=== PATIENT | female | born 1960 | race Caucasian/White ===

== ENCOUNTER 2022-02-09 12:57 | Outpatient (CLI) | payer OTHER, SELFPAY ==
--- OUTSIDE RECORDS SUMMARY | 2022-02-09 09:07 | XMS_ITS | Encounter Summary ---
:1960 Author Organization [facility] Address [address] [place] [address] Care Team Providers Name Role Phone Ran Siddiqui M.D. Primary Care Provider Unavailable Encounter Details Date Type Department Care Team Description 09/05/2018 Hospital Encounter Department of Ran Siddiqui Hypert ension Essential Primary; Laboratory Medicine Joel Villalobos Hypergly cemia; in [place], [facility] [place] [address] [place] [address] Social History Tobacco Use Types Packs/Day Years Used Date Smoking Tobacco: Former Smokeless Tobacco: Never Alcohol Use Standard Drinks/Week Comments Yes 0 (1 standard drink = 0.6 oz pure alcoho l) occasional Alcohol Habits Answer Date Recorded How often do you have a drink containing alcohol? Patient re fused 01/02/2019 How many drinks containing alcohol do you have on a Patient refused 01/02/2019 typical day when you are drinking? How often do you have six or more drinks on one Never 01/02/2019 occasion? Comment: occasional 04/20/2018 Social Isolation Answer Date Recorded In a typical week, how many times do you talk on Twice a wee k 01/02/2019 the phone with family, friends, or neighbors? How often do you get together with friends or Once a week 01/02/2019 relatives? How often do you attend zoroastrian or holiness 1 to 4 times per year 01/02/2019 services? Do you belong to any clubs or organizations such Yes 01/02/2019 as zoroastrian groups, unions, fraternal or athletic groups, or school groups? How often do you attend meetings of the clubs or 1 to 4 time s per year 01/02/2019 organizations you belong to? Are you now , , , Not asked , never or living with a partner? Physical Activity Answer Date Recorded On average, how many days per week do you engage in moderate to 5 days 01/02/2019 strenuous exercise (like walking fast, running, jogging, dancing, swimming, biking, or other activities that cause a light or heavy sweat)? On average, how many minutes do you engage in exercise at th is 20 min 01/02/2019 level? Stress Answer Date Recorded Do you feel stress - tense, restless, nervous, or Only a lit tle 01/02/2019 anxious, or unable to sleep at night because your mind is troubled all the time - these days? Financial Resource Strain Answer Date Recorded How hard is it for you to pay for the very basics like Not v kailash hard 01/02/2019 food, housing, medical care, and heating? Food Insecurity Answer Date Recorded Within the past 12 months, you worried that your food Never true 01/02/2019 would run out before you got money to buy more. Within the past 12 months, the food you bought just Patient refused 01/02/2019 didn't last and you didn't have money to get more. Transportation Needs Answer Date Recorded In the past 12 months, has lack of transportation kept you N o 01/02/2019 from medical appointments or from getting medications? In the past 12 months, has lack of transportation kept you N ot asked from meetings, work, or getting things needed for daily living? Sex Assigned at Date Recorded Female 11/03/2017 1:17 PM CDT documented as of this encounter Medications at Time of Discharge Medication Sig Dispensed Refills Start Date End Date ascorbic acid, vitamin C, Take 500 mg by 0 (for_VITAMIN C) 500 mg mouth daily. tablet biotin 1 mg capsule Take by mouth 0 08/28/2011 daily. CINNAMON BARK (CINNAMON Take 1,000 mg by 0 2011 ORAL) mouth daily with breakfast. cranberry 400 mg capsule Take 400 mg by 0 013 mouth daily. fexofenadine Take 1 tablet by 0 08/07/2013 (for_ALLEGRA) 180 mg mouth daily. tablet multivitamin capsule Take by mouth 0 01/22/2010 daily. albuterol (PROAIR HFA) 90 Inhale 2 puffs 8.5 g 0 201810/16/2019 mcg/actuation inhaler every 4 (four) hours as needed for wheezing or shortness of breath. aspirin 81 mg capsule Take 1 tablet by 0 01/23/20 10 10/16/2019 mouth daily. cefprozil (CEFZIL) 500 mg Take 1 tablet (500 20 tablet 0 10/11/2018 tablet mg total) by mouth every 12 (twelve) hours. cholecalciferol Take 2,000 Int'l 0 08/2018 (for_VITAMIN D3) 400 Units by mouth unit/mL drops daily. DOCOSAHEXANOIC ACID/EPA Take 1,000 mg by 0 10/11/2018 (FISH OIL ORAL) mouth daily. levothyroxine (LEVOXYL) Take 1 tablet (137 90 tablet 4 08/0910/11/2018 137 mcg tablet mcg total) by mouth daily. lisinopril Take 1 tablet (10 90 tablet 4 09/02/2017 019 (PRINIVIL,ZESTRIL) 10 mg mg total) by mouth tablet daily. metoprolol succinate Take 1 tablet (100 90 tablet 4 018 10/11/2018 (TOPROL-XL) 100 mg 24 hr mg total) by mouth tablet daily. omeprazole (PriLOSEC) 20 Take 1 capsule (20 90 capsule 4 10/11/2018 mg capsule mg total) by mouth daily. potassium chloride Take 3 tablets (60 270 tablet 3 8 09/28/2018 (KLOR-CON M/KDUR) 20 mEq mEq total) by mouth ER tablet daily. triamterene-hydroCHLOROth Take 0.5 tablets by 45 tablet 2 0 09/20/2017 10/11/2018 iazide (MAXZIDE) 75-50 mg mouth daily. per tablet documented as of this encounter Progress Notes Ran Siddiqui M.D. - 09/05/2018 1:31 PM CDT Your lab results are essentially normal. We can discuss at your upcoming appointment in October Ran Siddiqui MD documented in this encounter Plan of Treatment Not on filedocumented as of this encounter Procedures Procedure Name Priority Date/Time Associated Diagnosis Comme nts THYROID-STIMULATING Routine 09/05/2018 9:49 AM Hypothyroidism Results for this HORMONE-SENSITIVE CDT Acquired procedure are in (S-TSH) the results section. HEMOGLOBIN A1C, B Routine 09/05/2018 9:49 AM Hyperglycemia Res ults for this CDT procedure are i n the results section. BASIC METABOLIC Routine 09/05/2018 9:49 AM Hypertension Essent ial Results for this PANEL, S/P CDT Primary procedure are in Hyperglycemia the results section. documented in this encounter Results S-TSH (Thyroid-Stimulating Hormone - Sensitive) (09/05/2018 9:49 AM CDT) athologist Signature TSH, Sensitive 0.9 0.3 - 4.2 09/05/2018 [facility] mIU/L 12:19 PM CDT [facility] Comment: Biotin has been identified by the jaime murillo as a potential interfering substance. ??Higher concentr ations of biotin may be found in multivitamins, hair/nail supple ments, and workout supplements. ??If the result does not ma h clinical observations, repeat testing after patient refrains fr om the use of supplements for at least 12 hours. Specimen Anatomical Collection Method Collection Time Receive d Time (Source) Location / / Volume Laterality Blood (Blood, 09/05/2018 9:49 AM 09/06/19 19 9:50 Venous) CDT AM CDT Ran Siddiqui M.D. LAB BLOOD ADD-ON Performing Organization Address City/State/ZIP Code Phon e Number [facility] [address] [place] [address] LAB Hemoglobin A1c (09/05/2018 9:49 AM CDT) athologist Signature Hemoglobin A1c, 5.4 4.2 - 5.6 09/05/2018 [facility] B % 10:07 AM CDT [facility] Specimen Anatomical Collection Method Collection Time Receive d Time (Source) Location / / Volume Laterality Blood (Blood, 09/05/2018 9:49 AM 09/06/19 19 9:50 Venous) CDT AM CDT Ran Siddiqui M.D. LAB BLOOD ADD-ON Performing Organization Address City/State/ZIP Code Phon e Number [facility] [phone] [place] [address] LAB (ABNORMAL) Basic Metabolic Panel (09/05/2018 9:49 AM CDT) P athologist Signature Potassium, S 4.1 3.6 - 5.2 09/05/2018 [facility] mmol/L 12:[address] [facility] Sodium, S 146 (H) 135 - 145 09/05/2018 [facility] mmol/L 12:19 PM [facility] Chloride, S 106 98 - 107 09/05/2018 [facility] mmol/L 12:[address] [facility] Bicarbonate, S 24 - 09/05/2018 [facility] mmol/L 12:19 PM [facility] Anion Gap 16 (H) 7 - 15 09/05/2018 [facility] 12:19 PM [facility] BUN (Blood Urea 18 6 - 21 09/05/2018 [facility] Nitrogen), S mg/dL 12:19 PM [facility] Creatinine 1.03 0.59 - 09/05/2018 [facility] 1.04 mg/dL 12:19 PM [facility] eGFR-Non 60 >=60 09/05/2018 [facility] Black/ mL/min/BSA 12:19 PM [facility] Comment: ----ADDITIONAL INFORMATION---- Estimated GFR calculated using the 2009 CKD_EPI creatinine equation. eGFR-Black/ 70 >=60 mL/min/BSA 2018 12:19 PM [facility] Comment: ----ADDITIONAL INFORMATION---- Estimated GFR calculated using the 2009 CKD_EPI creatinine equation. Calcium, Total, S 10.0 8.6 - 10.0 mg/dL 09/05/2018 12:1 9 PM [facility] Glucose, S 86 70 - 140 mg/dL 09/05/2018 12:19 PM [facility] Specimen Anatomical Collection Method Collection Time Receive d Time (Source) Location / / Volume Laterality Blood (Blood, 09/05/2018 9:49 AM 09/06/19 9:50 Venous) CDT AM CDT Ran Siddiqui M.D. LAB BLOOD ADD-ON Performing Organization Address City/State/ZIP Code Phon e Number [facility] [phone] [place] [address] LAB documented in this encounter Visit Diagnoses Diagnosis Hypertension Essential Primary Hyperglycemia Hypothyroidism Acquired documented in this encounter Care Teams Clinical Lab Scientist Relationship Specialty Start Date End Date Ran Siddiqui M.D. PCP - General 10/22/1604/09 documented as of this encounter
--- OUTSIDE RECORDS SUMMARY | 2022-02-09 09:07 | XMS_ITS | Encounter Summary ---
:1960 Author Organization [facility] Address [address] [place] [address] Care Team Providers Name Role Phone Ran Siddiqui M.D. Primary Care Provider Unavailable Reason for Referral MRI/CAT/PET Scan (Routine) - Closed Specialty Diagnoses / Procedures Referred By Contact Refer red To Contact Radiology Diagnoses Other Specified Joint Disorders Unspecified Joint Almas Carver M.D. [facility] [place] [facility] Procedures MR Knee Right without IV Contrast MI MRI LWR EXT JOINT WO CNTRST HC MRI LWR EXT JOINT WO CNTRST MI MRI LWR EXT JOINT WO CNTRST [address] [place] [address] [phone] Referral ID Status Reason Start Date Expiration Date Visits Requ ested Visits Authorized [id number] Closed 09/14/2018 09/14/2019 1 1 Reason for Visit MRI/CAT/PET Scan (Routine) - Closed Specialty Diagnoses / Procedures Referred By Contact Refer red To Contact Radiology Diagnoses Other Specified Joint Disorders Unspecified Joint Almas Carver M.D. [facility] [place] [facility] Procedures MR Knee Right without IV Contrast MI MRI LWR EXT JOINT WO CNTRST HC MRI LWR EXT JOINT WO CNTRST MI MRI LWR EXT JOINT WO CNTRST [address] [place] [address] [phone] Referral ID Status Reason Start Date Expiration Date Visits Requ ested Visits Authorized [id number] Closed 09/14/2018 09/14/2019 1 1 Encounter Details Date Type Department Care Team Description 09/23/2018 Hospital Encounter Department of Agusto Carver ecified Radiology in Almas Rey M.D. Joint Disorders [place], [place] [address] Unspecified Joint [address] [place] [phone] Social History Tobacco Use Types Packs/Day [...] 01/02/2019 relatives? How often do you attend adventist or scientologist 1 to 4 times per year 01/02/2019 services? Do you belong to any clubs or organizations such Yes 01/02/2019 as adventist groups, unions, fraternal or athletic groups, or [...] to pay for the very basics like Rafal linder hard 01/02/2019 food, housing, medical care, and [...] per tablet documented as of this encounter Plan of Treatment Not on filedocumented as of this encounter Procedures Procedure Name Priority Date/Time Associated Comments Diagnosis MR KNEE RIGHT RAD - Routine 09/23/2018 12:22 Other Specified Result s for this WITHOUT IV (most inpatients PM CDT Joint Disorders procedur e are in CONTRAST and all Unspecified Joint the result s outpatients) section. documented in this encounter Results MR Knee Right without IV Contrast (09/23/2018 12:22 PM CDT) Anatomical Region Laterality Modality Lower Extremity, Knee, Musculoskeletal RST LOS, Right Magnetic Resonance Musculoskeletal ARZ LOS, Muskuloskeletal FLA LOS Specimen (Source) Anatomical Collection Method Collection Time Re ceived Time Location / / Volume Laterality 09/23/2018 12:24 PM CDT Impressions 09/23/2018 12:37 PM CDT IMPRESSION: 1. Multidirectional tear of the posterio r body and posterior horn of the medial meniscus. 2. 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 There is subchondral edema of the medial tibial plateau with irregularity of the cortical bone plate. No definite subchondral insufficiency fr acture. 3. Large amount of reactive edema about the medial collateral ligament. Knee ligaments are intact. 4. The lateral meniscus and lateral comp artment cartilage are intact. Narrative 09/23/2018 12:37 PM CDT EXAM: MR KNEE RIGHT WITHOUT IV CONTRAST COMPARISON: Radiographs 09/05/2018 FINDINGS: Unenhanced MRI of the right kn ee. MEDIAL COMPARTMENT: Multidirectional tea r of the posterior body and posterior horn of the medial meniscus. The posteri or root attachment is intact. There is peripheral extrusion of the meniscus wit hout evidence of a displaced flap. Large area of full-thickness chondral denudati on of the medial tibial plateau with irregularity of the cortical bone plate and subchondral edema. No definite subchondral insufficiency fracture is id entified. There is also high-grade chondromalacia of the opposing medial fe moral condyle. LATERAL COMPARTMENT: The lateral meniscu s and lateral compartment cartilage are intact. PATELLOFEMORAL COMPARTMENT: Grade III ch ondromalacia of the lateral patellar facet and trochlear sulcus. LIGAMENTS and TENDONS: The ACL and PCL a re intact. The lateral collateral ligament proper, biceps femoris tendon, and popliteus tendon are intact. The edema along the medial collateral ligame nt is likely reactive. BONES and SOFT TISSUES: Trace knee joint effusion. Moderate popliteal fossa cyst. Procedure Note Ector Kelly M.D. - 09/23/2018For matting of this note might be different from the original. EXAM: MR KNEE RIGHT WITHOUT IV CONTRAST COMPARISON: Radiographs 09/05/2018 FINDINGS: Unenhanced MRI of the right kn ee. MEDIAL COMPARTMENT: Multidirectional tea r of the posterior body and posterior horn of the medial meniscus. The posteri or root attachment is intact. There is peripheral extrusion of the meniscus wit hout evidence of a displaced flap. Large area of full-thickness chondral denudati on of the medial tibial plateau with irregularity of the cortical bone plate and subchondral edema. No definite subchondral insufficiency fracture is id entified. There is also high-grade chondromalacia of the opposing medial fe moral condyle. LATERAL COMPARTMENT: The lateral meniscu s and lateral compartment cartilage are intact. PATELLOFEMORAL COMPARTMENT: Grade III ch ondromalacia of the lateral patellar facet and trochlear sulcus. LIGAMENTS and TENDONS: The ACL and PCL a re intact. The lateral collateral ligament proper, biceps femoris tendon, and popliteus tendon are intact. The edema along the medial collateral ligame nt is likely reactive. BONES and SOFT TISSUES: Trace knee joint effusion. Moderate popliteal fossa cyst. IMPRESSION: 1. Multidirectional tear of the posterio r body and posterior horn of the medial meniscus. 2. 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 There is subchondral edema of the medial tibial plateau with irregularity of the cortical bone plate. No definite subchondral insufficiency fr acture. 3. Large amount of reactive edema about the medial collateral ligament. Knee ligaments are intact. 4. The lateral meniscus and lateral comp artment cartilage are intact. Almas Carver M.D. [facility] PROCEDURES documented in this encounter Visit Diagnoses Diagnosis Other Specified Joint Disorders Unspecif ied Joint documented in this encounter Care Teams Sales Associate Cashier Relationship Specialty Start Date End Date Ran Siddiqui M.D. PCP - General 10/22/1604/09 documented as of this encounter
--- OUTSIDE RECORDS SUMMARY | 2022-02-09 09:23 | XMS_ITS | Clinical Summary ---
:1960 Author Organization [facility] [employer] [facility] [place] [address] Care Team Providers Name Role Phone Ran Siddiqui MD Primary Care Provider [phone] Allergies Active Allergy Reactions Severity Noted Date Comments Penicillins Hives Low 09/08/2011 Hydrocodone-Acetaminophen Hives 05/18/2014 Medications Medication Sig Dispensed Refills Start Date End Date Status CINNAMON BARK Take 1,000 mg by 0 Active (CINNAMON mouth once daily. ORAL)Indications: Supplement supplement Indications: supplement fexofenadine Take 180 mg by mouth 0 Active (ELZA) 180 mg once daily with a tabletIndications: meal. Indications: allergic rhinitis ALLERGIC RHINITIS DOCOSAHEXANOIC Take 1,000 mg by 0 Active ACID/EPA (FISH OIL mouth once daily. ORAL)Indications: for Indications: for heart health heart health triamterene-hydrochlo Take 1 tablet by 0 Active rothiazide, 75-50 mg, mouth every morning. (MAXZIDE) 75-50 mg Indications: tabletIndications: HYPERTENSION hypertension levothyroxine Take 150 mcg by mouth 0 Active (LEVOXYL) 150 mcg before breakfast. tabletIndications: Indications: hypothyroidism HYPOTHYROIDISM lisinopril (PRINIVIL; Take 10 mg by mouth 0 Active ZESTRIL) 10 mg once daily. tabletIndications: Indications: hypertension HYPERTENSION multivitamin (MVI) Take 1 tablet by 0 Active tabletIndications: mouth once daily. vitamin deficiency Indications: VITAMIN prevention DEFICIENCY PREVENTION omeprazole (PRILOSEC) Take 20 mg by mouth 0 Active 20 mg once daily before a capsuleIndications: meal. Indications: gastroesophageal GASTROESOPHAGEAL reflux disease REFLUX CHOLECALCIFEROL, Take 400 Int'l Units 0 Active VITAMIN D3, (VITAMIN by mouth once daily. D-3 ORAL)Indications: Indications: prevention of vitamin prevention of vitamin d deficiency d deficiency BIOTIN Take 1 tablet by 0 Act inga ORALIndications: mouth once daily. supplement Indications: supplement METOPROLOL SUCCINATE Take 100 mg by mouth 0 Active ORALIndications: once daily. hypertension Indications: hypertension POTASSIUM CHLORIDE Take 20 mEq by mouth 0 Active ORALIndications: once daily. potassium supplement Indications: potassium supplement ascorbic acid Take 500 mg by mouth 0 Active (VITAMIN C) 500 mg once daily. tabletIndications: Indications: vitamin vitamin c supplement c supplement albuterol HFA (PROAIR Inhale 2 Puffs by 0 Active HFA) 90 mcg/actuation mouth every 4 hours inhaler if needed (wheezing or shortness breath). aspirin (ECOTRIN) 81 Take 81 mg by mouth 0 Active mg enteric coated once daily with a tabletIndications: meal. Indications: myocardial infarction treatment to prevent prevention a heart attack Cranberry 400 mg Take 400 mg by mouth 0 Active capsuleIndications: once daily. UTI prevention Indications: UTI prevention magnesium 250 mg tab Take 250 mg by mouth 0 Active once daily. traMADol (ULTRAM) 50 Take 1 tablet by 15 tablet 0 10/25/2018 Active mg tabletIndications: mouth every 6 hours Complex tear of if needed for Pain. medial meniscus of right knee as current injury, initial encounter CrutchIndications: For home use. 1 Device 0 10/25/2018 Active Complex tear of medial meniscus of right knee as current injury, initial encounter Active Problems Problem Noted Date Complex tear of medial meniscus of right knee as curre nt injury 10/20/2018 Premenopausal menorrhagia 01/06/2012 Immunizations Name Administration Dates Next Due Influenza, IIV3 (Age >=3 years) 02/04/2011, 03/12/2008 Td (Age >=7 Years) 07/18/2010, 04/09/2005 Zoster (Zostavax-ZVL, live) 07/28/2011 Social History Tobacco Use Types Packs/Day Years Used Date Former Smoker Quit: 01/05/19 81 Smokeless Tobacco: Never Used Alcohol Use Standard Drinks/Week Comments Yes 0 (1 standard drink = 0.6 oz pure alcoho l) 1 or 2 per month Alcohol Habits Answer Date Recorded How often do you have a drink containing alcohol? Not asked How many drinks containing alcohol do you have on a Not aske d typical day when you are drinking? How often do you have six or more drinks on one Not asked occasion? Comment: 1 or 2 per month 01/06/2012 Sex Assigned at Date Recorded Not on file Obstetrics History Last Filed Vital Signs Vital Sign Reading Time Taken Comments Blood Pressure 132/84 10/25/2018 12:20 PM CDT Pulse 62 10/25/2018 12:20 PM CDT Temperature 36.7 ??C (98 ??F) 10/25/2018 11:15 AM CDT Respiratory Rate 18 10/25/2018 12:20 PM CDT Oxygen Saturation 97% 10/25/2018 12:20 PM CDT Inhaled Oxygen Concentration - - Weight 105.3 kg (232 lb 3.2 oz) 10/25/2018 9:12 AM CDT Height 160 cm (5' 2.99) 10/25/2018 9:12 AM CDT Body Mass Index 41.14 10/25/2018 9:12 AM CDT Plan of Treatment Health Maintenance Due Date Last Done Comments COVID-19 vaccine series (#1) 1961 Tdap 1972 Depression screening for age 12+ 1973 BMI (ht and wt on same day) for age 18+ 1979 Hepatitis C screening for age 18-79 1979 Pap test for age 21-65 1982 Colonoscopy through age 75 2006 Lipids for age 45-75 2006 Mammogram for age 45-75 2006 Zoster (shingles) series for age 50+ (2 of 09/22/201107/27 3) Tetanus booster 07/18/2020 07/18/2010, 04/09/2005 Influenza for age 50-64 01/08/2022 02/04/2011, 03/12/2008 Results Not on filefrom Last 3 Months Insurance Payer Benefit Plan / Subscriber ID Effective Dates Phone Addre ss Type Group MEDICA MEDICA IFB [id number] 2017-Present [address] [place] [id number] ([address]) [place] [id number] Advance Directives Latest Code Status on File Code Status Date Activated Date Inactivated Comments Full Code 10/25/2018 8:58 AM 10/25/2018 3:12 PM Code Status Discussion: Not Discussed Full Code 01/06/2012 6:58 AM 01/07/2012 2:47 PM Full Code 09/18/2011 7:05 AM 09/18/2011 8:35 PM Care Teams Secretary Of State Relationship Specialty Start Date End Date Ran Siddiqui MD PCP - General Family Practice 09/11/11
[2022-02-09 14:02] LABS: TSH With Reflex to FT4* 0.435 uIU/mL (0.270-4.200)
[2022-02-09 14:15] LABS: Glucose* 115 mg/dL (60-115)
== END 2022-02-09 12:58 | disposition home or self-care (01) ==
PROVIDERS: PCP Nurse Practitioner Family; Visit Provider Nurse Practitioner Family
DX: E03.9 Hypothyroidism, unspecified (principal); R73.9 Hyperglycemia, unspecified
CPT/HCPCS: 36415; 82947; 84443

== ENCOUNTER 2022-04-24 10:00 | Outpatient (CLI) | payer OTHER, SELFPAY ==
[2022-04-24 16:42] LABS: Uric Acid* 7.5 mg/dL (2.2-8.4)
== END 2022-04-24 10:01 | disposition home or self-care (01) ==
LOC: KYNREF 10:00
PROVIDERS: PCP Nurse Practitioner Family; Visit Provider Nurse Practitioner Family
DX: M79.672 Pain in left foot (principal); M19.072 Primary osteoarthritis, left ankle and foot; M77.32 Calcaneal spur, left foot
CPT/HCPCS: 84550

== ENCOUNTER 2022-11-02 11:06 | Outpatient (CLI) | payer OTHER, SELFPAY | END 2022-11-02 11:07 | disposition home or self-care (01) | PROVIDERS: PCP Nurse Practitioner Family; Visit Provider Nurse Practitioner Family | DX: Z00.00 Encounter for general adult medical examination without abnormal findings (principal); E03.9 Hypothyroidism, unspecified; I10 Essential (primary) hypertension; E05.00 Thyrotoxicosis with diffuse goiter without thyrotoxic crisis or storm; Z13.0 Encounter for screening for diseases of the blood and blood-forming organs and certain disorders involving the immune mechanism; Z13.6 Encounter for screening for cardiovascular disorders; Z87.898 Personal history of other specified conditions | CPT/HCPCS: 80053; 80061; 84443; 85025 ==

== ENCOUNTER 2022-12-10 15:52 | Outpatient (CLI) | payer OTHER, SELFPAY ==
[2022-12-10 22:47] LABS: Strep A DNA Probe* NOT DETECTED (Not Detectd)
== END 2022-12-10 15:53 | disposition home or self-care (01) ==
LOC: KYNREF 15:52
PROVIDERS: PCP Nurse Practitioner Family; Visit Provider Nurse Practitioner Family
DX: J02.9 Acute pharyngitis, unspecified (principal)
CPT/HCPCS: 87651

== ENCOUNTER 2023-07-19 14:15 | Outpatient (CLI) | payer OTHER, SELFPAY ==
[2023-07-19 23:20] LABS: SARS PCR* Negative SARS-CoV-2 (Negative); Strep A DNA Probe* NOT DETECTED (Not Detectd)
== END 2023-07-19 14:16 | disposition home or self-care (01) ==
PROVIDERS: PCP Nurse Practitioner Family; Visit Provider Nurse Practitioner Family
DX: J02.9 Acute pharyngitis, unspecified (principal); J06.9 Acute upper respiratory infection, unspecified
CPT/HCPCS: 87635; 87651

== ENCOUNTER 2023-11-09 08:12 | Outpatient (CLI) | payer OTHER, SELFPAY ==
--- OUTSIDE RECORDS SUMMARY | 2023-11-09 08:18 | XMS_ITS ---
Author Organization [facility] Address [address] [place] [address] Care Team Providers Care Apple Thinner Name Role Phone Unavailable Unavailable Unavailable Surgery Details Not on file Complications Check Surgery Details section. Procedure Estimated Blood Loss Check Surgery Details section. Procedure Findings Check Surgery Details section. Procedure Specimens Taken Check Surgery Details section.
--- OUTSIDE RECORDS SUMMARY | 2023-11-09 08:18 | XMS_ITS | Encounter Summary ---
Author Organization [facility] Address [address] [place] [address] Care Team Providers Care Physiotherapy Aide Name Role Phone Valerie Mendoza M.D. Primary Care Provider Encounter Details Date Type Department Care Team (Late st Contact Info) Description 09/28/2023 Clinical Communication Department of Family Medicine, [facility], in [place], [place] [address] [address] Valerie Mendoza M.D. [address] [address] Social History Tobacco Use Types Packs/Day Years Used Date Smoking Tobacco: Former Cigarettes Q uit: 1979 Smokeless Tobacco: Never Alcohol Use Standard Drinks/Week Comments Yes 0 (1 standard drink = 0.6 oz pur e alcohol) occasional Social Connection and Isolation Panel [NHANES] A nswer Date Recorded Frequency of Communication w ith Friends and Family Twice a week 01/02/2019 Frequency of Social Gatherin gs with Friends and Family Once a week 01/02/2019 Attends Latter-Day Services 1 to 4 times per year 01/02/2019 Active Member of Clubs or Organizations Yes 01/02/2019 Attends Club or Organization Meetings 1 to 4 christopher es per year 01/02/2019 Marital Status Not on file 01/02/2019 AUDIT-C Answer Date Recorded Frequency of Alcohol Consumption Patient decline d 01/02/2019 Average Number of Drinks Patient declined 2018 Frequency of Binge Drinking Never 12/09 Overall Financial Resource Strain (CARDIA) Answe r Date Recorded Difficulty of Paying Living Expenses Not very [address] 01/02/2019 PHQ-2 Answer Date Recorded PHQ-2 Score 0 10/23/2020 [facility] [place] of Occupat ional Health - Occupational Stress Questionnaire Answer Date Recorded Feeling of Stress Only a little 01/02/2019 Exercise Vital Sign Answer Date Recorde d Days of Exercise per Week 5 days 2018 Minutes of Exercise per Session 20 min 01/02/2019 Hunger Vital Sign Answer Date Recorded Worried About Running Out of Food in the Last Ye ar Never true 01/02/2019 Ran Out of Food in the Last Year Patient decline d 01/02/2019 PRAPARE - Transportation Answer Date Re corded Lack of Transportation (Medical) No 01/02/2019 Lack of Transportation (Non-Medical) Not on file 01/02/2019 Nutrition Answer Date Recorded Nutrition: EVOO Fat Source 12 01/22 Nutrition: Servings of Fruits/Vegetables per Day 4-5 01/23/2020 Dental Answer Date Recorded Dental: Regular Dentist Unknown 07/01/19 21 Education Answer Date Recorded What is the highest level of school you have completed or the highest degree you have received? 12th grade 01/02/2019 Sex and Gender Information Value Date Recorded Sex Assigned at Female 11/03/2017 1:17 PM CDT Gender Identity Female 11/03/2017 1:17 PM CDT Sexual Orientation Not on file documented as of this encounter Plan of Treatment Upcoming Encounters Date Type Department Care Team (Late st Contact Info) Description 12/13/2023 11:45 AM CDT Appointment Department of Radiology in [place], [place] [address], [place] [address] Valerie Mendoza M.D. [address] [place] [phone] 12/28/2023 11:00 AM CDT Diagnostic Department of Otorhinolaryngology in [place], [place] [address], [place] [address] Gloria Vargas AUD, Au.D. [address], [place] [address] documented as of this encounter Visit Diagnoses Not on filedocumented in this encounter Care Teams Physiotherapy Aide Relationship Specialty Start Date End Date Valerie Mendoza M.D. [address] [place] [phone] PCP - General 01/01/23 documented as of this encounter
--- OUTSIDE RECORDS SUMMARY | 2023-11-09 08:18 | XMS_ITS | Encounter Summary ---
Author Organization [facility] Address [address] [place] [address] Care Team Providers Care Laundry Sorter Name Role Phone Valerie Mendoza M.D. Primary Care Provider [phone] Encounter Details Date Type Department Care Team (Late st Contact Info) Description 10/11/2023 Clinical Communication Department of Family Medicine, [facility], in [place], [place] [address], [place] [address] Valerie Mendoza M.D. [address], [place] [address] Social History Tobacco Use Types [...] and Family Once a week 01/02/2019 Attends Holiness Services 1 to 4 times per year [...] Answer Date Recorded PHQ-2 Score 0 10/23/2020 [facility] [place] of Occupat ional Health - Occupational Stress [...] AM CDT Appointment Department of Radiology in [place], [place] [address], [place] [address] Valerie Mendoza M.D. [address] [place] [phone] 12/28/2023 11:00 AM CDT Diagnostic Department of Otorhinolaryngology in [place], [place] [address], [place] [address] Gloria Vargas AUD, Au.D. [address], [place] [address] Scheduled Orders Name Type Priority Associated Diagnoses Orde r Schedule Audiology evaluation Audiology Routine Loss Hearing Bilateral Expected: 10/11/2023, Expires: 01/10/2025 documented as of this encounter Visit Diagnoses Diagnosis Loss Hearing Bilateral- Primary documented in this encounter Care Teams Laundry Sorter Relationship Specialty Start Date End Date Valerie Mendoza M.D. [address] [place] [phone] PCP - General 01/01/23 documented as of this encounter
--- OUTSIDE RECORDS SUMMARY | 2023-11-09 08:18 | XMS_ITS | Clinical Summary ---
Author Organization [facility] Address [place], [place] [address] Care Team Providers Care Clinical Nursing Director Name Role Phone Ran Siddiqui MD Primary Care Provider [phone] Allergies Active Allergy Reactions Criticality Noted Date Comments Penicillins Hives Low 09/08/2011 Hydrocodone-Acetaminophen Hives 05/18/2014 Medications Medication Sig Dispensed Refills Start Date End Date Status CINNAMON BARK (CINNAMON ORAL)Indications :supplement Take 1,000 mg by mouth once daily. Supplement Indications: supplement Active fexofenadine (ELZA) 180 mg tabletIndication s:allergic rhinitis Take 180 mg by mouth once daily with a meal. Indications: ALLERGIC RHINITIS Active DOCOSAHEXANOIC ACID/EPA (FISH OIL ORAL)Indications :for heart health Take 1,000 mg by mouth once daily. Indications: for heart health Active triamterene-hydr ochlorothiazide, 75-50 mg, (MAXZIDE) 75-50 mg tabletIndication s:hypertension Take 1 tablet by mouth every morning. Indications: HYPERTENSION Active levothyroxine (LEVOXYL) 150 mcg tabletIndication s:hypothyroidism Take 150 mcg by mouth before breakfast. Indications: HYPOTHYROIDISM Active lisinopril (PRINIVIL; ZESTRIL) 10 mg tabletIndication s:hypertension Take 10 mg by mouth once daily. Indications: HYPERTENSION Active multivitamin (MVI) tabletIndication s:vitamin deficiency prevention Take 1 tablet by mouth once daily. Indications: VITAMIN DEFICIENCY PREVENTION Active omeprazole (PRILOSEC) 20 mg capsuleIndicatio ns:gastroesophag eal reflux disease Take 20 mg by mouth once daily before a meal. Indications: GASTROESOPHAGEAL REFLUX Active CHOLECALCIFEROL, VITAMIN D3, (VITAMIN D-3 ORAL)Indications :prevention of vitamin d deficiency Take 400 Int'l Units by mouth once daily. Indications: prevention of vitamin d deficiency Active BIOTIN ORALIndications: supplement Take 1 tablet by mouth once daily. Indications: supplement Active METOPROLOL SUCCINATE ORALIndications: hypertension Take 100 mg by mouth once daily. Indications: hypertension Active POTASSIUM CHLORIDE ORALIndications: potassium supplement Take 20 mEq by mouth once daily. Indications: potassium supplement Active ascorbic acid (VITAMIN C) 500 mg tabletIndication s:vitamin c supplement Take 500 mg by mouth once daily. Indications: vitamin c supplement Active albuterol HFA (PROAIR HFA) 90 mcg/actuation inhaler Inhale 2 Puffs by mouth every 4 hours if needed (wheezing or shortness breath). Active aspirin (ECOTRIN) 81 mg enteric coated tabletIndication s:myocardial infarction prevention Take 81 mg by mouth once daily with a meal. Indications: treatment to prevent a heart attack Active Cranberry 400 mg capsuleIndicatio ns:UTI prevention Take 400 mg by mouth once daily. Indications: UTI prevention Active magnesium 250 mg tab Take 250 mg by mouth once daily. Active traMADol (ULTRAM) 50 mg tabletIndication s:Complex tear of medial meniscus of right knee as current injury, initial encounter Take 1 tablet by mouth every 6 hours if needed for Pain. 15 tablet 10/25/2018 Active CrutchIndication s:Complex tear of medial meniscus of right knee as current injury, initial encounter For home use. 1 Device 10/25/2018 Active Active Problems Problem Noted Date Diagnosed Date Complex tear of medial menis cus of right knee as current injury 10/20/2018 Premenopausal menorrhagia 01/06/2012 Immunizations Name Administration Dates Next Due Influenza, IIV3 (Age >=3 years) 02/04/2011,03/12 Td (Age >=7 Years) 07/18/2010,04/09/2005 Zoster (Zostavax-ZVL, live) 07/28/2011 Social History Tobacco Use Types Packs/Day Years Used Date Smoking Tobacco: Former Cigarettes Q uit: 01/06/1980 Smokeless Tobacco: Never Alcohol Use Standard Drinks/Week Comments Yes 0 (1 standard drink = 0.6 oz pur e alcohol) 1 or 2 per month Sex and Gender Information Value Date Recorded Sex Assigned at Not on file Gender Identity Not on file Sexual Orientation Not on file Obstetrics History Last Filed Vital Signs Vital Sign Reading Time Taken Comments Blood Pressure 132/84 10/25/2018 12:20 PM CDT Pulse 62 10/25/2018 12:20 PM CDT Temperature 36.7 ??C (98 ??F) 10/25/2018 11: 15 AM CDT Respiratory Rate 18 10/25/2018 12:2 0 PM CDT Oxygen Saturation 97% 10/25/2018 12: 20 PM CDT Inhaled Oxygen Concentration - - Weight 105.3 kg (232 lb 3.2 oz) 10/25/2018 9:12 AM CDT Height 160 cm (5' 2.99) 10/25/2018 9:12 AM CDT Body Mass Index 41.14 10/25/2018 9:12 AM CDT Plan of Treatment Health Maintenance Due Date Last Done Comments Tdap 1972 Depression screening for age 12+ 1973 HIV for age 15-65 1976 BMI (ht and wt on same day) for age 18+ 1979 Hepatitis C screening for ag e 18-79 1979 Pap test for age 21-65 1982 Colonoscopy through age 75 2006 Lipids for age 45-75 2006 Mammogram for age 45-75 2006 Zoster (shingles) series for age 50+ (2 of 3) 09/22/2011 07/28/2011 Tetanus booster 07/18/2020 07/18/2010, 04/09/2005 COVID-19 vaccine series (2022- season) 2023 Influenza for age 50-64 01/09/2024 02/05/20 11, 03/12/2008 Pneumococcal series for age 6-64 Aged Out No longer eligible b ased on patient's age to complete this topic Advance Directives * Full Code (Latest Code Status on File) Date Activated Date Inactivated Comments 10/25/2018 8:58 AM 10/25/2018 3:12 PM Question Answer Comments Code Status Discussion: Not Discussed * Full Code Date Activated Date Inactivated Comments 01/06/2012 6:58 AM 01/07/2012 2:47 PM * Full Code Date Activated Date Inactivated Comments 09/18/2011 7:05 AM 09/18/2011 8:35 PM Care Teams Clinical Nursing Director Relationship Specialty Start Date End Date Ran Siddiqui MD PCP - General Family Practice 09/11/11
--- OUTSIDE RECORDS SUMMARY | 2023-11-09 08:18 | XMS_ITS | Encounter Summary ---
Author Organization [facility] Address [address] [place] [address] Care Team Providers Care Engineering Supplies Sales Name Role Phone Valerie Mendoza M.D. Primary Care Provider Reason for Referral * - Incomplete Specialty Diagnoses / Procedures Referred By Nathalie tong Referred To Contact Procedures CHRISTIANO Punch / shave biopsy Irene Morales APRN, C.N.P. [address] [place] [phone] Referral ID Status Reason Start Date Expiration Date V isits Requested Visits Authorized [id number] Incomplete 09/23/2023 09/22/2024 1 1 Reason for Visit * Reason Comments Lesion * Outpatient (Routine) - Closed Specialty Diagnoses / Procedures Referred By Nathalie tong Referred To Contact Dermatology Irene Morales APRN, C.N.P. [address] [place] [address] [facility] Region Referral ID Status Reason Start Date Expiration Date Visits Re quested Visits Authorized [id number] Closed 01/22/2023 01/21/2026 1 1 Encounter Details Date Type Department Care Team (Late st Contact Info) Description 09/23/2023 4:00 PM CDT Office Visit Department of Family Medicine, [facility], in [place], [place] [address], [place] [address] Irene Morales APRN, C.N.P. [address] [place] [address] Body Mass Index 40.0 To 44.9 Adult (HCC) (Primary Dx); Tumor Skin Uncertain Behavior Social History Tobacco Use Types Packs/Day Years Used Date Smoking Tobacco: Former Cigarettes Q uit: 1979 Smokeless Tobacco: Never Tobacco Cessation:Counseling Given: Not Answered Alcohol Use Standard Drinks/Week Comments Yes 0 (1 standard drink = 0.6 oz pur e alcohol) occasional Social Connection and Isolation Panel [NHANES] A nswer Date Recorded Frequency of Communication w ith Friends and Family Twice a week 01/02/2019 Frequency of Social Gatherin gs with Friends and Family Once a week 01/02/2019 Attends Bahai Services 1 to 4 times per year [...] Answer Date Recorded PHQ-2 Score 0 10/23/2020 [facility] of Occupat ional Health - Occupational Stress [...] on file documented as of this encounter Progress Notes * Irene Morales APRN, C.N.P. - 09/23/2023 4:00 PM CDT SUBJECTIVE CHIEF COMPLAINT / REASON FOR VISIT Lesion. HISTORY OF PRESENT ILLNESS Maine Martino is a 63 y.o. female who presents for follow up evaluation of an atypical appearing lesion on her neck that was identified during her last skin exam. She reports that she had aprevious tree branch injury around that area about a year ago. She denies any changes or symptoms to the area. Per nursing notes: Chief Complaint (Reason for visit): Recheck watch spot How long has lesion(s) been present, any symptoms (pain, bleeding, or itching)? : no Was patient referred, self referred, or a returning derm patient? : returning patient Personal or family history of skin cancer or other skin condition? : niece and brother unsure of what type Any other skin concerns today? : no REVIEW OF SYSTEMS Constitutional, integumentary, and allergic/immunologic review of systems is negative except as otherwise remarked above or below. OBJECTIVE PHYSICAL EXAM General: Well-appearing female in no acute distress. Well groomed and dressed and answers appropriately to questions. Skin: Left Anterior Neck 2 mm x 10 mm linear dark brown macule. In comparison to photographs in QREADS no significant changenoted. ASSESSMENT / PLAN #1 Tumor Skin Uncertain Behavior, foreign body debris versus lentigo, rule out lentigo maligna CONSENT Discussed the risks, benefits, alternatives, and the necessity of other members of the healthcare team participating in the procedure. All questions answered and consent given. UNIVERSAL PROTOCOL Procedural pause conducted to verify: correct patient identity, procedure to be performed, and as applicable, correct side and site, correct patient position, and availability of implants, special equipment, or special requirements. PROCEDURE INFORMATION Shave biopsy. We explained the potential diagnosis and recommended that we obtain a biopsy. The risks and benefits of the procedure were discussed, and the patient consented to these procedures. Using 1% lidocainewith epinephrine for local anesthesia, a shave biopsy was obtained from the left anterior neck. Biopsy submitted to Dermatopathology for H&E. Special stains will be performed as indicated. The bleeding was well controlled with application of aluminum chloride. Dressing was applied, and wound care instructions were explained. Biopsy results and any further recommendations will be communicated to the patient by letter. Patient given pamphlet [id number]. #2 Body Mass Index 40.0 To 44.9 Adult (HCC) Condition(s) are managed in primary care and/or specialty care. PATIENT EDUCATION Ready to learn, no apparent learning barriers were identified; learning preferences include listening. Explained diagnosis and treatment plan; patient expressed understanding of the content. This note represents shared documentation between the assisting nurse and the encounter provider. The content has been reviewed and edited as needed by the provider. documented in this encounter Plan of Treatment Upcoming Encounters Date Type Department Care Team (Late st Contact Info) Description 12/13/2023 11:45 AM CDT Appointment Department of Radiology in [place], [place] [address] [address] Valerie Mendoza M.D. [address] [address] 12/28/2023 11:00 AM CDT Diagnostic Department of Otorhinolaryngology in [place], [place] [address] [address] Gloria Vargas AUD, Au.D. [address] [address] documented as of this encounter Procedures Procedure Name Priority Date/Time Associated Diagnosis Comments CHRISTIANO PUNCH / SHAVE BIOPSY Routine 024 4:16 PM CDT Tumor Skin Uncertain Behavior DERMATOPATHOLOGY Routine 09/23/2023 4:16 PM CDT Tumor Skin Uncertain Behavior documented in this encounter Results * CHRISTIANO Punch / shave biopsy (09/23/2023 4:16 PM CDT) Narrative Irene Morales APRN, C.N.P. - 09/23/2023 4:16 PM CDT Type of biopsy: tangential ?? Informed consent: discussed and consent obtained ?? Timeout: patient name, date of , surgical site, and procedure verified ?? Procedure prep: ??Patient was prepped and draped in usual sterile fashion Anesthesia: the lesion was anesthetized in a standard fashion ?? Outcome: patient tolerated procedure well ?? Post-procedure details: wound care instructions given ?? Irene Andrew BUSTILLOS, C.N.P. DERM PROCEDURE O RDERABLES * Dermatopathology (09/23/2023 4:16 PM CDT) 09/27/2023 3:25 PM CDT MKTO Report Electronically Signed By Kaveh Ramirez M.D. I verify that I have examined all relevant slides/materia ls for the specimen(s) and rendered or confirmed the diagnosis. 09/27/2023 3:25 PM CDT MKTO Gross Description Submitted as left anterior neck and consists of sanon skin fragments aggregating to 0.5 cm. ??ESB, one block. mpg/tl 09/27/2023 3:25 PM CDT MKTO Specimen Source A. left anterior neck, foreign body debris from tree branch injury r/o other 09/27/2023 3:25 PM CDT MKTO Interpretation FINAL DIAGNOSIS A: ??Skin, left anterior neck, excision: ??SEBORRHEIC KERATOSIS, PIGMENTED Digital imaging was used in the diagnostic assessment of this case. 09/27/2023 3:25 PM CDT MKTO Skin (Left Anterior Neck) 09/23/2023 4:16 PM CDT Comment:Use lidocaine-EPINEP Hrine 1%-1:100,000 injection (XYLOCAINE W/EPI); 1-3 mL, infiltration, as needed, 1 mL, May repeat twice up to 1 mL per dose if the patient complains of pain/discomfort at the site. Irene Morales APRN, C.N.P. LAB PATH DERM OR DERABLES [facility] [address] [place] [address], [facility] MKTO [address] [place] [address] documented in this encounter Visit Diagnoses Diagnosis ZZ Body Mass Index 40.0 To 44.9 Adult (HCC)- Primary Tumor Skin Uncertain Behavior documented in this encounter Care Teams Engineering Supplies Sales Relationship Specialty Start Date End Date Valerie Mendoza M.D. [address] [place] [address] PCP - General 01/01/23 documented as of this encounter
--- OUTSIDE RECORDS SUMMARY | 2023-11-09 08:18 | XMS_ITS | Encounter Summary ---
Author Organization [facility] Address [address] [place] [address] Care Team Providers Care Compensation Intern Name Role Phone Valerie Mendoza M.D. Primary Care Provider Reason for Referral * Outpatient (Routine) - Authorized Specialty Diagnoses / Procedures Referred By Nathalie t Referred To Contact Valerie Mendoza M.D. [address] [place] [address] [facility] Referral ID Status Reason Start Date Expiration Date V isits Requested Visits Authorized [id number] Authorized 08/10/2023 02/08/2025 1 1 Encounter Details Date Type Department Care Team (Late st Contact Info) Description 08/10/2023 Orders Only [facility] PCP [facility] MNT Valerie Mendoza M.D. [address] [place] [address] Screening Examination Diabetes Mellitus; Monitoring For Therapeutic Drug Therapy; Hypothyroidism Social History Tobacco Use Types Packs/Day Years [...] and Family Once a week 01/02/2019 Attends Taoism Services 1 to 4 times per year [...] Answer Date Recorded PHQ-2 Score 0 10/23/2020 [facility] of Occupat ional Health - Occupational Stress [...] AM CDT Appointment Department of Radiology in [place], [place] [address] [place] [phone] Valerie Mendoza M.D. [address] [place] [address] 12/28/2023 11:00 AM CDT Diagnostic Department of Otorhinolaryngology in [place], [place] [address], [place] [address] Gloria Vargas AUD, Au.D. [address], [place] [address] Scheduled Orders Name Type Priority Associated Diagnoses Orde r Schedule Glucose, Fasting Lab Routine Screening Examination Diabetes Mellitus Expected: 08/24/2023, Expires: 02/06/2024 Basic Metabolic Panel Lab Routine Monitoring For Therapeutic Drug Therapy Expected: 08/24/2023, Expires: 02/06/2024 S-TSH (Thyroid-Stimulating Hormone - Sensitive) Lab Routine Hypothyroidism Expected: 08/24/2023, Expires: 02/06/2024 Scheduled Referrals Name Type Priority Associated Diagnoses Orde r Schedule Primary Care nurse visit (clinic) - [facility] Region; BP check; BP check only ([facility]) Outpatient Referral Routine Expected: 08/24/2023, Expires: 02/06/2024 documented as of this encounter Visit Diagnoses Diagnosis Screening Examination Diabetes Mellitus Monitoring For Therapeutic Drug Therapy Hypothyroidism documented in this encounter Care Teams Compensation Intern Relationship Specialty Start Date End Date Valerie Mendoza M.D. [address] [place] [phone] PCP - General 01/01/23 documented as of this encounter
--- OUTSIDE RECORDS SUMMARY | 2023-11-09 08:18 | XMS_ITS | Referral Summary ---
Author Organization [facility] Address [address] [place] [address] Care Team Providers Care Public Opinion Survey Taker Name Role Phone Valerie Mendoza M.D. Primary Care Provider Source Comments Patient records contain information from all sites at [facility]. For routine questions regarding patient records, call [phone] during business hours, M-F 8:00 AM - 5:00 PM Central Time. Record requests for emergency care only can be directed to [phone] at any time.[facility] Encounters Date Type Department Care Team Description 10/11/2023 Clinical Communication Department of Family Medicine, [facility], in [place], [place] [address] [address] Vaelrie Mendoza M.D. 09/28/2023 Clinical Communication Department of Family Medicine, [facility], in [place], [place] [address] [phone] Valerie Mendoza M.D. 09/23/2023 4:00 PM CDT Office Visit Department of Family Medicine, [facility], in [place], [place] [address] [address] Irene Morales APRN, C.N.P. Body Mass Index 40.0 To 44.9 Adult (HCC) (Primary Dx); Tumor Skin Uncertain Behavior 08/10/2023 Orders Only [facility] Valerie Rinaldi M.D. Screening Examination Diabetes Mellitus; Monitoring For Therapeutic Drug Therapy; Hypothyroidism from Last 3 Months Allergies Active Allergy Reactions Criticality Noted Date Comments Hydrocodone Hives only, no other systemic symptoms 11/02/2022 Hydrocodone-Acetaminophen Rash 02/03/2012 Penicillin Rash 01/22/2010 Medications Medication Sig Dispensed Refills Start Date End Date Status CINNAMON BARK (CINNAMON ORAL) Take 1,000 mg by mouth daily with breakfast. 07/28/2011 Active cranberry 400 mg capsule Take 400 mg by mouth daily. 12/14/2012 Active fexofenadine (for_ALLEGRA) 180 mg tablet Take 1 tablet by mouth daily. 08/07/2013 Active multivitamin capsule Take by mouth daily. 01/22/2010 Active ascorbic acid, vitamin C, (for_VITAMIN C) 500 mg tablet Take 500 mg by mouth daily. Active docosahexanoic acid/epa (FISH OIL ORAL) Take 1,000 mg by mouth. Active cholecalciferol, vitamin D3, 400 unit capsule Take 1 capsule by mouth daily. Active magnesium 250 mg tablet Take 250 mg by mouth. Active diclofenac sodium (VOLTAREN) 1 % gel Apply 4 g topically 2 (two) times a day as needed (knee pain). 100 g 3 10/16/2019 Active levothyroxine (SYNTHROID, LEVOTHROID) 137 mcg tablet Take 1 tablet (137 mcg total) by mouth every morning before breakfast. 90 tablet 3 10/23/2020 Active potassium chloride (KLOR-CON M/KDUR) 20 mEq ER tablet Take 3 tablets (60 mEq total) by mouth daily. 270 tablet 3 10/23/2020 Active triamterene-hydroCH LOROthiazide (MAXZIDE) 75-50 mg per tablet Take 1 tablet by mouth daily. 90 tablet 3 10/23/2020 Active metoprolol succinate (TOPROL-XL) 100 mg 24 hr tablet Take 1 tablet (100 mg total) by mouth daily. 90 tablet 4 10/23/2020 Active lisinopriL (PRINIVIL,ZESTRIL) 10 mg tablet Take 1 tablet (10 mg total) by mouth daily. 90 tablet 4 10/23/2020 Active traZODone (DESYREL) 50 mg tablet Take 50 mg by mouth at bedtime. 10/30/2021 Active omeprazole (PriLOSEC) [address] capsule TAKE ONE CAPSULE BY MOUTH ONCE DAILY 90 capsule 3 10/30/2022 Active albuterol 90 mcg/actuation inhaler Inhale 2 puffs. 08/11/2022 Active albuterol 2.5 mg /3 mL nebulizer solution INHALE 2.5MG(3ML) EVERY 6-8 HOURS NEEDED FOR COUGH FOR UP 30 DAYS 01/14/2023 Active Qvar RediHaler 40 mcg/actuation inhaler 1 puff 2 (two) times a day. 01/08/2023 Active cetirizine (ZyrTEC) 10 mg tablet Take 10 mg by mouth daily. For 90 days. 12/29/2022 Active Comp-Air Nebulizer Compressor device See Admin Instructions. 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 Reflux Esophageal 07/03/2009 Loss Hearing Bilateral 07/03/2009 Rhinitis Allergic 07/03/2009 Hypertension Essential Primary 06/21/2007 Hypothyroidism Acquired Overview: Secondary to Graves treatment Resolved Problems Problem Noted Date Diagnosed Date Resolved Date Dislocation Shoulder Closed Subsequent Right 5 10/11/2018 Hyperglycemia 10/05/2013 10/11/2018 Bleeding Perimenopausal 01/06/2012 06/08/2018 Microhematuria 01/29/2009 10/11/2018 Immunizations Name Administration Dates Next Due HZV (ZOSTAVAX) 07/28/2011 Influenza (IM) Preservative Free 03/12/2008,03/10 Influenza Split 04/08/2006, 4,03/06/2003,2001,03/16/2001,04/04/1999 Influenza, Unspecified 03/09/2016,2014,02/02/2014,2012,02/03/2012,02/04/2011,03/05/2010 PCV13 08/13/2014 RZV (SHINGRIX) 10/11/2018,11/12/2017,09/02/2017 SARS-COV-2 (COVID-19) - MODERNA(Discontinued) 09/06/2020,08/09/2020 Td Preservative Free (TENIVA C, DECAVAC) 04/09/2005 Tdap 10/23/2020,07/18/2010 influenza LAIV (Nasal) (2 ye ars through 49 years) 04/09/2005 influenza vaccine quad (FLUZONE/FLUARIX) (6 months and older)(PF) 03/11/2018,03/27/2017 Social History Tobacco Use Types Packs/Day Years [...] and Family Once a week 01/02/2019 Attends [employer] Services 1 to 4 times per year [...] Answer Date Recorded PHQ-2 Score 0 10/23/2020 [facility] [place] of Occupat ional Health - Occupational Stress [...] PM CDT Sexual Orientation Not on file Last Filed Vital Signs Vital Sign Reading Time Taken Comments Blood Pressure 130/65 10/23/2020 10:07 AM CDT Pulse 74 10/23/2020 10:07 AM CDT Temperature 36 ??C (96.8 ??F) 10/23/2020 10:07 AM CDT Respiratory Rate 16 01/03/2020 1:12 PM CDT Oxygen Saturation 95% 07/08/2019 9:39 AM TRANSITIONAL CARE MANAGER Inhaled Oxygen Concentration - - Weight 102 kg (224 lb 13.9 oz) 10/23/2020 10:07 AM CDT Height 159.5 cm (5' 2.8) 10/23/2020 10:07 AM CD T Body Mass Index 40.09 10/23/2020 10:07 AM CDT Plan of Treatment Upcoming Encounters Date Type Department Care Team (Late st Contact Info) Description 12/13/2023 11:45 AM CDT Appointment Department of Radiology in [place], [place] [address] [phone] Valerie Mendoza M.D. [address] [place] [phone] 12/28/2023 11:00 AM CDT Diagnostic Department of Otorhinolaryngology in [place], [place] [address] [place] [phone] Gloria Vargas AUD, Au.D. [address] [phone] Procedures Procedure Name Priority Date/Time Associated Diagnosis Comments CHRISTIANO PUNCH / SHAVE BIOPSY Routine 09/23/2023 4:16 PM CDT Tumor Skin Uncertain Behavior DERMATOPATHOLOGY Routine 09/23/2023 4:16 PM CDT Tumor Skin Uncertain Behavior BI BREAST SCREENING BILATERAL WITH TOMOSYNTHESIS RAD - Routine (most inpatients and all outpatients) 12/07/2022 10:15 AM CDT Screening Mammogram Breast Cancer POTASSIUM, S/P Routine 11/12/2020 1:17 PM CDT Hypertension Essential Primary THYROID-STIMULATING HORMONE-SENSITIVE (S-TSH) Routine 10/16/2020 9:58 AM CDT Hypothyroidism Acquired BASIC METABOLIC PANEL, S/P Routine 10/16/2020 9:58 AM CDT Hypertension Essential Primary LIPID PANEL, S Routine 10/13/2019 10:52 AM CDT Encounter For Screening For Cardiovascular Disorders HCV AB SCRN W/REFLEX TO HCV PCR, S Routine 08/31/2016 10:11 AM CDT from Last 3 Months or Most Recently Relevant to Health Maintenance Results * CHRISTIANO Punch / shave biopsy (09/23/2023 4:16 PM CDT) Narrative Irnee Morales APRN, C.N.P. - 09/23/2023 4:16 PM [...] details: wound care instructions given ?? Irene Morales APRN, C.N.P. DERM PROCEDURE O RDERABLES * Dermatopathology [...] of pain/discomfort at the site. Irene Morales APRN C.N.PFernando LAB PATH DERM OR DERABLES [facility] [address] [place] [address], [facility] [address] [place] [address] * BI Breast Screening Bilateral with Tomosynthesis (12/07/2022 10:15 AM CDT) Anatomical Region Laterality Modality Breast, Breast Imaging RST L OS, Breast Imaging ARZ LOS, Breast Imaging FLA LOS Bilateral Mammography 12/07/2022 12:4 1 PM CDT Impressions 12/07/2022 12:42 PM CDT Negative. RECOMMENDATION: ??Annual Screening Mammogram ASSESSMENT: ??BI-RADS: 1: Negative. Narrative 12/07/2022 12:42 PM CDT EXAM: ??BI BREAST SCREENING BILATERAL WITH TOMOSYNTHESIS Current study was evaluated with a Computer Aided Detection (CAD) system. INDICATION: ??Screening mammogram. COMPARISON: ??Prior exam(s) were available and reviewed for comparison. DENSITY: ??b. There are scattered areas of fibroglandular density. FINDINGS: ??No mammographic findings of malignancy. Procedure Note Dustin Maldonado M.D. - 12/07/2022 EXAM: BI BREAST SCREENING BILATERAL WITH TOMOSYNTHESIS Current study was evaluated with a Computer Aided Detection (CAD) system. INDICATION: Screening mammogram. COMPARISON: Prior exam(s) were available and reviewed for comparison. DENSITY: b. There are scattered areas of fibroglandular density. FINDINGS: No mammographic findings of malignancy. IMPRESSION: Negative. RECOMMENDATION: Annual Screening Mammogram ASSESSMENT: BI-RADS: 1: Negative. Alaina Cuevas APRN, C.N.P. [facility] BI PROC EDURES * Potassium (11/12/2020 1:17 PM CDT) Potassium, P 4.0 3.6 - 5.2 mmol/L 11/12/2020 2:03 PM CDT [facility] Blood (Blood, Venous) 11/12/2020 1:17 PM CDT 11/12/2020 1:18 PM CDT Alaina Cuevas APRN, C.N.P. LAB BLOOD A DD-ON [facility] [address] [place] [address], [facility] OWAT [facility] in [place] [address] [place] [address] * S-TSH (Thyroid-Stimulating Hormone - Sensitive) (10/16/2020 9:58 AM CDT) TSH, Sensitive 0.4 0.3 - 4.2 mIU/L 10/16/2020 10:38 AM CDT OWAT Blood (Blood, Venous) 10/16/2020 9:58 AM CDT 10/16/2020 9:59 AM CDT Alaina Cuevas APRN, C.N.P. LAB BLOOD A DD-ON [facility] [address] [place] [address], [facility] OWAT [facility] [place] [address] [place] [address] * (ABNORMAL) Basic Metabolic Panel (10/16/2020 9:58 AM CDT) Potassium, P 3.5(L) 3.6 - 5.2 mmol/L 10/16/2020 10:28 AM CDT OWAT Sodium, P 145 135 - 145 mmol/L 10/16/2020 10:28 AM CDT OWAT Chloride, P 106 98 - 107 mmol/L 10/16/2020 10:28 AM CDT OWAT Bicarbonate, P 26 22 - 29 mmol/L 10/16/2020 10:28 AM CDT OWAT Anion Gap, P 13 7 - 15 10/16/2020 10:28 AM CDT OWAT BUN (Blood Urea Nitrogen), P 20 6 - 21 mg/dL 10/16/2020 10:28 AM CDT OWAT Creatinine 0.98 0.59 - 1.04 mg/dL 10/16/2020 10:28 AM CDT OWAT eGFR-Black/Afri can Nepalese 73 >=60 mL/min/BSA 10/16/2020 10:28 AM CDT OWAT Comment: ----ADDITIONAL INFORMATION---- Estimated GFR calculated using the 2009 CKD_EPI creatinine equation. eGFR Non-Black/Afric an Nepalese 63 >=60 mL/min/BSA 10/16/2020 10:28 AM CDT OWAT Comment: ----ADDITIONAL INFORMATION---- Estimated GFR calculated using the 2009 CKD_EPI creatinine equation. Calcium, Total, P 10.0 8.6 - 10.0 mg/dL 10/16/2020 10:28 AM CDT OWAT Glucose, P 98 70 - 140 mg/dL 10/16/2020 10:28 AM CDT OWAT Blood (Blood, Venous) 10/16/2020 9:58 AM CDT 10/16/2020 9:59 AM CDT Alaina Cuevas APRN, C.N.P. LAB BLOOD A DD-ON [facility] [address] [place] [address], [facility] OWAT [facility] [place] [address] [place] [address] * (ABNORMAL) Lipid Panel (10/13/2019 10:52 AM CDT) Cholesterol, Total 161 mg/dL 2019 11:40 AM CDT OWAT Comment: ----REFERENCE VALUE---- Desirable: < 200 Borderline high: 200 - 239 High: > or = 240 Triglycerides 146 mg/dL 10/13/2019 11:40 AM CDT OWAT Comment: ----REFERENCE VALUE---- Normal: <150 Borderline high: 150-199 High: 200-499 Very high: > or =500 Cholesterol, HDL 45(L) >=50 mg/dL 10/13/19 11:40 AM CDT OWAT Calculated LDL 87 mg/dL 10/13/2019 11:40 AM CDT OWAT Comment: ----REFERENCE VALUE---- Desirable: <100 Above Desirable: 100-129 Borderline high: 130-159 High: 160-189 Very high: > or =190 Cholesterol, Non-HDL, Calculated 116 mg/dL 10/13/2019 11:40 AM CDT OWAT Comment: ----REFERENCE VALUE---- Desirable: <130 Above Desirable: 130-159 Borderline high: 160-189 High: 190-219 Very high: > or =220 Blood (Blood, Venous) 10/13/2019 10:52 AM CDT 10/13/2019 10:54 AM CDT Alaina Cuevas APRN, C.N.P. LAB BLOOD A DD-ON Performing Organization Address City/[facility]/ZIP Co de Phone Number [facility] [address] [place] [address], [place] OW[address] [facility] [place] [address] [place] [address] * HCV Ab w/Reflex to HCV PCR, S (medicare) (08/31/2016 10:11 AM CDT) HXHCV Ab [facility] Negative Negative POWERCHART Comment: Zkfqwq-uy-kbdmxv ratio is <1.00. Test Performed by: [facility] - [address] [address] Blood 08/31/2016 10:1 1 AM CDT Ran Siddiqui M.D. LAB MICROBIOLOGY - BLOOD ORDERABLES Performing Organization Address City/[facility] Co de Phone Number POWERCHART from Last 3 Months or Most Recently Relevant to Health Maintenance Care Teams Public Opinion Survey Taker Relationship Specialty Start Date End Date Valerie Mendoza M.D. NPMegan: [phone] [address] [place] [address] PCP - General 01/01/23
--- OUTSIDE RECORDS SUMMARY | 2023-11-09 08:18 | XMS_ITS | Clinical Summary ---
Author Organization [facility] Address [address] [place] [address] Care Team Providers Care Tap Grinder Name Role Phone Valerie Mendoza M.D. Primary Care Provider [phone] Source Comments Patient records contain information from all sites at [facility]. For routine questions regarding patient records, call [phone] during business hours, M-F 8:00 AM - 5:00 PM Central Time. 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 Reflux Esophageal 07/03/2009 Loss Hearing Bilateral 07/03/2009 Rhinitis Allergic 07/03/2009 Hypertension Essential Primary 06/21/2007 Hypothyroidism Acquired Overview: Secondary to Graves treatment Resolved Problems Problem Noted Date Diagnosed Date Resolved Date Dislocation Shoulder Closed Subsequent Right 5 10/11/2018 Hyperglycemia 10/05/2013 10/11/2018 Bleeding Perimenopausal 01/06/2012 06/0 08/2018 Microhematuria 01/29/2009 10/11/2018 Encounters Date Type Department Care Team Description 10/11/2023 Clinical Communication Department of [facility], [facility], [place], [place] [address] [place] [phone] Valerie Mendoza M.D. 09/28/2023 Clinical Communication Department of [facility], [facility], [place], [place] [address] [phone] Valerie Mendoza M.D. 09/23/2023 4:00 PM CDT Office Visit Department of [facility], [facility], [place], [place] [address] [phone] Irene Morales APRN, C.N.P. Body Mass Index 40.0 To 44.9 Adult (HCC) (Primary Dx); Tumor Skin Uncertain Behavior 08/10/2023 Orders Only [facility] PCP [facility] Valerie Mendoza M.D. Screening Examination Diabetes Mellitus; Monitoring For Therapeutic Drug Therapy; Hypothyroidism from Last 3 Months Immunizations Name Administration Dates Next Due HZV (ZOSTAVAX) 07/28/2011 Influenza (IM) Preservative Free 03/12/2008,03/10 Influenza Split 04/08/2006, 4,03/06/2003,2001,03/16/2001,04/04/1999 Influenza, Unspecified 03/09/2016,2014,02/02/2014,2012,02/03/2012,02/04/2011,03/05/2010 PCV13 08/13/2014 RZV (SHINGRIX) 10/11/2018,11/12/2017,09/02/2017 SARS-COV-2 (COVID-19) - MODERNA(Discontinued) 09/06/2020,08/09/2020 Td Preservative Free (TENIVA C, DECAVAC) 04/09/2005 Tdap 10/23/2020,07/18/2010 influenza LAIV (Nasal) (2 ye ars through 49 years) 04/09/2005 influenza vaccine quad (FLUZONE/FLUARIX) (6 months and older)(PF) 03/11/2018,03/27/2017 Family History Medical History Relation Name Comments Carpal tunnel syndrome Brother Cholelithiasis Brother Coronary artery disease Brother Hyperlipidemia Brother Hypertension Brother Pancreatitis Brother Alcohol abuse Father Liver failure Father Breast cancer Grandmother Coronary artery disease Mother Diabetes Mother Heart failure Mother Hypertension Mother Uterine cancer Mother Carpal tunnel syndrome Sister Hyperlipidemia Sister Hypertension Sister Scleroderma Sister Relation Name Status Comments Brother Father Grandmother Mother Sister Social History Tobacco Use Types Packs/Day Years [...] and Family Once a week 01/02/2019 Attends [employer] Services 1 to 4 times per year [...] Answer Date Recorded PHQ-2 Score 0 10/23/2020 [facility] [place] of Occupat ional Health - Occupational Stress [...] CDT Oxygen Saturation 95% 07/08/2019 9:39 AM 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 [address] [place] [phone] 12/28/2023 11:00 AM CDT Diagnostic Department of Otorhinolaryngology in [place], [place] [address] [place] [phone] [place], AUTUMN Herrera, [place] [address] [place] [phone] Health Maintenance Due Date Last Done Comments CT Colonography 1961 FIT 1961 HIV Screening 1960 Office Visit for Blood Pressure Check / Re-check 1961 Visit: Chronic Disease, age 18+ 1961 Colonoscopy 09/17/2021 09/18/2011 Creatinine Level (Kidney Function Test) 10/16/2021 10/16/2020, 10/13/2019, 10/18/2018, Additional history exists Sodium Level 10/16/2021 10/16/2020, 10/08, 09/05/2018, Additional history exists Thyroid Stimulating Hormone (TSH) test for thyroid function 10/16/2021 10/16/2020, 10/13/2019, 09/05/2018, Additional history exists Potassium Level 11/12/2021 11/12/2020, 06/0 01/2021, 10/13/2019, Additional history exists COVID-19 Vaccine ( season) 2023 09/06/2020, 08/09/2020 Depression Screening (Annual PHQ-2) 05/10/2023 Fasting Glucose for Diabetes Screening 10/17/2023 10/16/2020, 10/13/2019, 10/18/2018, Additional history exists Mammogram 12/08/2023 12/07/2022, 07/0 10/2021, 10/23/2020, Additional history exists Influenza Vaccine (#1) 2024 8, 03/27/2017, 03/09/2016, Additional history exists Lipid (Cholesterol) Screening 10/12/2024 10/13/2019, 08/13/2014, 08/07/2013 Cologuard 11/17/2024 11/17/2021 Colorectal Cancer Screening 11/17/2024 DTaP,Tdap,and Td Vaccines (3 - Td or Tdap) 10/23/2030 10/23/2020, 07/18/2010, 04/09/2005 Pneumococcal vaccine (0-64 years) Aged Out 08/13/2014 No longer eligible based on patient's age to complete this topic Hepatitis C Screening Completed 08/31/2016 Zoster Vaccines Completed 10/11/2018, 0710/2017, 09/02/2017, Additional history exists Procedures Procedure Name Priority Date/Time Associated Diagnosis [...] APRN, C.N.P. LAB PATH DERM OR DERABLES [facility] [address] [place] [address], [facility] [place] [address] * BI Breast Screening Bilateral with Tomosynthesis [...] BI-RADS: 1: Negative. Alaina Cuevas APRN, C.N.P. [facility] BI PROC EDURES * Potassium (11/12/2020 1:17 PM CDT) Potassium, P 4.0 3.6 - 5.2 mmol/L 11/12/2020 2:03 PM CDT OWAT Blood (Blood, Venous) 11/12/2020 1:17 PM CDT 11/12/2020 1:18 PM CDT Alaina Cuevas APRN, C.N.P. LAB BLOOD A DD-ON [facility] [address] [place] [address], [place] OWAT [facility] [place] [address] [place] [address] * S-TSH (Thyroid-Stimulating Hormone - Sensitive) (10/16/2020 9:58 AM CDT) TSH, Sensitive 0.4 0.3 - 4.2 mIU/L 10/16/2020 10:38 AM CDT OWAT Blood (Blood, Venous) 10/16/2020 9:58 AM CDT 10/16/2020 9:59 AM CDT Jyotsna Downs APRNNFernandoPFernando LAB BLOOD A DD-ON [facility] [address] [place] [address], [facility] OWAT [facility] [place] [address] [place] [address] * (ABNORMAL) Basic Metabolic Panel (10/16/2020 9:58 [...] 10/16/2020 10:28 AM CDT OWAT eGFR-Black/Afri can Beninese 73 >=60 mL/min/BSA 10/16/2020 10:28 AM CDT OWAT Comment: ----ADDITIONAL INFORMATION---- Estimated GFR calculated using the 2009 CKD_EPI creatinine equation. eGFR Non-Black/Afric an Beninese 63 >=60 mL/min/BSA 10/16/2020 10:28 AM CDT OWAT Comment: ----ADDITIONAL INFORMATION---- Estimated GFR calculated using the 2009 CKD_EPI creatinine equation. Calcium, Total, P 10.0 8.6 - 10.0 mg/dL 10/16/2020 10:28 AM CDT OWAT Glucose, P 98 70 - 140 mg/dL 10/16/2020 10:28 AM CDT OWAT Blood (Blood, Venous) 10/16/2020 9:58 AM CDT 10/16/2020 9:59 AM CDT Alaina Cuevas APRN C.NFernandoPFernando LAB BLOOD A DD-ON [facility] [address] [place] [address], [facility] OWAT [facility] [place] [address] [place] [address] * (ABNORMAL) Lipid Panel (10/13/2019 10:52 AM [...] 10/13/2019 10:54 AM CDT Alaina Cuevas APRN, C.N.PFernando LAB BLOOD A DD-ON Performing Organization Address [facility] de Phone Number [facility] [address] [place] [address], [facility] OWAT [facility] [place] [address] [place] [address] * HCV Ab w/Reflex to HCV PCR, S (medicare) (08/31/2016 10:11 AM CDT) HXHCV Ab [facility] Negative Negative POWERCHART Comment: Pctcpf-mp-rkqarc ratio is <1.00. Test Performed by: [address] [address] Blood 08/31/2016 10:1 1 AM CDT Ran Siddiqui M.D. LAB MICROBIOLOGY - BLOOD ORDERABLES Performing Organization Address [facility] de Phone Number POWERCHART from Last 3 Months or Most Recently Relevant to Health Maintenance Care Teams Tap Grinder Relationship Specialty Start Date End Date Valerie Mendoza M.D. [address] [place] [phone] PCP - General 01/01/23
== END 2023-11-09 08:13 | disposition home or self-care (01) ==
PROVIDERS: PCP Nurse Practitioner Family; Visit Provider Nurse Practitioner Family
DX: E03.9 Hypothyroidism, unspecified (principal); I10 Essential (primary) hypertension; Z13.220 Encounter for screening for lipoid disorders; Z13.0 Encounter for screening for diseases of the blood and blood-forming organs and certain disorders involving the immune mechanism
CPT/HCPCS: 80053; 80061; 84443; 85025

== ENCOUNTER 2024-03-27 09:18 | Outpatient (CLI) | payer OTHER, SELFPAY ==
--- OUTSIDE RECORDS SUMMARY | 2024-03-27 09:20 | XMS_ITS | Referral Summary ---
Author Organization [facility] Address [address] [place] [address] Care Team Providers Care Medicine Tech Name Role Phone Valerie Mendoza M.D. Primary Care Provider Source Comments Patient records contain information from all sites at [facility]. For routine questions regarding patient records, call [phone] during business hours, M-F 8:00 AM - 5:00 PM Central Time. Record requests for emergency care only can be directed to [phone] at any time.[facility] Encounters Date Type Department Care Team Description 03/14/2024 10:30 AM ALARM SERVICE TECHNICIAN Diagnostic Department of Otorhinolaryngology in [address] [phone] Gloria Vargas AUD, Au.D. Loss Hearing Mixed Bilateral 02/23/2024 11:00 AM CDT Diagnostic Department of Otorhinolaryngology in [place], [place] [address] [place] [phone] Gloria Vargas AUD, Au.D. Loss Hearing Mixed Bilateral 02/08/2024 Orders Only [facility] Valerie Rinaldi M.D. Screening Examination Diabetes Mellitus; Monitoring For Therapeutic Drug Therapy; Hypothyroidism 01/17/2024 10:00 AM CDT Diagnostic Department of Otorhinolaryngology in [place], [place] [address] [place] [phone] Gloria Vargas AUD, Au.D. Loss Hearing Mixed Bilateral 01/13/2024 Clinical Communication Department of Otorhinolaryngology in [address] [phone] Gloria Vargas AUD, Au.D. 01/03/2024 10:34 AM CDT - 01/03/2024 11:59 PM CDT Hospital Encounter Department of Radiology in [address] [phone] Valerie Mendoza M.D. Abnormal Mammogram Microcalcification Discharge Disposition: Home or Self Care 12/28/2023 3:30 PM CDT Comprehensive Visit Department of Otorhinolaryngology in [address] [phone] Ramya George P.A.-C. Loss Hearing Mixed Bilateral (Primary Dx); Dermatitis Ear 12/28/2023 11:00 AM CDT Diagnostic Department of Otorhinolaryngology in [address] [phone] Gloria Vargas AUD, Au.D. Loss Hearing Mixed Bilateral from Last 3 Months Allergies Active Allergy Reactions Criticality Noted Date Comments Hydrocodone Hives only, no other systemic symptoms 11/02/2022 Hydrocodone-Acetaminophen Rash 02/03/2012 Penicillin Rash 01/22/2010 Medications * This document contains information received from the source organization and may not represent a complete record from that organization. CINNAMON BARK (CINNAMON ORAL) Take 1,000 mg by mouth daily with breakfast. 2 Active cranberry 400 mg capsule Take 400 mg by mouth daily. 3 Active fexofenadine (for_ALLEGRA) 180 mg tablet Take 1 tablet by mouth daily. 4 Active multivitamin capsule Take by mouth daily. 0 Active ascorbic acid, vitamin C, (for_VITAMIN C) [...] as needed (knee pain). 100 g 3 0 Active levothyroxine (SYNTHROID, LEVOTHROID) 137 mcg tablet Take 1 tablet (137 mcg total) by mouth every morning before breakfast. 90 tablet 3 1 Active potassium chloride (KLOR-CON M/KDUR) 20 mEq ER tablet Take 3 tablets (60 mEq total) by mouth daily. 270 tablet 3 1 Active triamterene-hydro CHLOROthiazide (MAXZIDE) 75-50 mg per tablet Take 1 tablet by mouth daily. 90 tablet 3 1 Active metoprolol succinate (TOPROL-XL) 100 mg 24 hr tablet Take 1 tablet (100 mg total) by mouth daily. 90 tablet 4 1 Active lisinopriL (PRINIVIL,ZESTRIL ) 10 mg tablet Take 1 tablet (10 mg total) by mouth daily. 90 tablet 4 1 Active traZODone (DESYREL) 50 mg tablet Take 50 mg by mouth at bedtime. 2 Active omeprazole (PriLOSEC) [address] capsule TAKE ONE CAPSULE BY MOUTH ONCE DAILY 90 capsule 3 3 Active albuterol 90 mcg/actuation inhaler Inhale 2 puffs. 3 Active albuterol 2.5 mg /3 mL nebulizer solution INHALE 2.5MG(3ML) EVERY 6-8 HOURS NEEDED FOR COUGH FOR UP 30 DAYS 3 Active Qvar RediHaler 40 mcg/actuation inhaler 1 puff 2 (two) times a day. 3 Active cetirizine (ZyrTEC) 10 mg tablet Take 10 mg by mouth daily. For 90 days. 3 Active Comp-Air Nebulizer Compressor device See Admin Instructions. 3 Active betamethasone dipropionate 0.05 % lotion 3 drops to left ear twice daily for 2 weeks. May repeat every 2-4 months if necessary for ear dermatitis. 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 Reflux Esophageal 07/03/2009 Loss Hearing Bilateral 07/03/2009 Rhinitis Allergic 07/03/2009 Hypertension Essential Primary 06/21/2007 Hypothyroidism Acquired Overview (08/30/2017): Secondary to Graves treatment Resolved Problems Problem Noted Date Diagnosed Date Resolved Date Dislocation Shoulder Closed Subsequent Right 5 10/11/2018 Hyperglycemia 10/05/2013 10/11/2018 Bleeding Perimenopausal 01/06/2012 06/08/2018 Microhematuria 01/29/2009 10/11/2018 Immunizations Name Administration Dates Next Due HZV (ZOSTAVAX) 07/28/2011 Influenza Split 04/08/2006, 4,03/06/2003,2001,03/16/2001,04/04/1999 Influenza, Unspecified 03/09/2016,2014,02/02/2014,2012,02/03/2012,02/04/2011,03/05/2010 PCV13 08/13/2014 RZV (SHINGRIX) 10/11/2018,11/12/2017,09/02/2017 SARS-COV-2 (COVID-19) - MODERNA(Discontinued) 09/06/2020,08/09/2020 Td Preservative Free (TENIVA C, DECAVAC) 04/09/2005 Tdap 10/23/2020,07/18/2010 influenza LAIV (Nasal) (2 ye ars through 49 years) 04/09/2005 influenza trivalent vaccine (6 months and older)(PF) 03/12/2008,03/22/2007 influenza vaccine quad (FLUZONE/FLUARIX) (6 months and [...] and Family Once a week 01/02/2019 Attends [facility] 1 to 4 times per year [...] Answer Date Recorded PHQ-2 Score 0 10/23/2020 [facility] - Occupational [...] degree you have received? 12th grade 01/02/2019 Comments No Sex and Gender Information Value Date Recorded Sex Assigned at Female 11/03/2017 1:17 PM CDT Legal Sex Female 4:21 AM ALARM SERVICE TECHNICIAN Gender Identity Female 11/03/2017 1:17 PM CDT Sexual Orientation Not on file Last Filed Vital Signs Vital Sign Reading Time Taken Comments Blood Pressure 130/65 10/23/2020 10:07 AM CDT Pulse 74 10/23/2020 10:07 AM CDT Temperature 36 ??C (96.8 ??F) 10/23/2020 10:07 AM CDT Respiratory Rate 16 01/03/2020 1:12 PM CDT Oxygen Saturation 95% 07/08/2019 9:39 AM ALARM SERVICE TECHNICIAN Inhaled Oxygen Concentration - - Weight 102 kg (224 lb 13.9 oz) 10/23/2020 10:07 AM CDT Height 159.5 cm (5' 2.8) 10/23/2020 10:07 AM CD T Body Mass Index 40.09 10/23/2020 10:07 AM CDT Plan of Treatment Upcoming Encounters Date Type Department Care Team (Late st Contact Info) Description 04/03/2024 10:30 AM ALARM SERVICE TECHNICIAN Diagnostic Department of Otorhinolaryngology in [place], [place] [address] [phone] Gloria Vargas AUD, Au.Joellen [address] [phone] Procedures Procedure Name Priority Date/Time Associated Diagnosis Comments BI BREAST DIAGNOSTIC RIGHT WITH TOMOSYNTHESIS RAD - Routine (most inpatients and all outpatients) 01/03/2024 10:54 AM CDT Abnormal Mammogram Microcalcification AUDIOLOGY EVALUATION Routine 12/28/2023 12:00 AM CDT Loss Hearing Mixed Bilateral POTASSIUM, S/P Routine 11/12/2020 1:17 PM CDT Hypertension Essential Primary THYROID-STIMULATIN G HORMONE-SENSITIVE (S-TSH) Routine 10/16/2020 9:58 AM CDT Hypothyroidism Acquired BASIC METABOLIC PANEL, S/P Routine 10/16/2020 9:58 AM CDT Hypertension Essential Primary LIPID PANEL, S Routine 10/13/2019 10:52 AM CDT Encounter For Screening For Cardiovascular Disorders HCV AB SCRN W/REFLEX TO HCV PCR, S Routine 08/31/2016 10:11 AM CDT from Last 3 Months or Most Recently Relevant to Health Maintenance Results * BI Breast Diagnostic Right with Tomosynthesis (01/03/2024 10:54 AM CDT) Anatomical Region Laterality Modality Breast, Breast Imaging RST L OS, Breast Imaging ARZ LOS, Breast Imaging FLA LOS Right Mammography Impressions 01/03/2024 11:21 AM CDT No mammographic findings of malignancy. RECOMMENDATION: ??Annual Screening Mammogram Findings discussed with the patient at the time of the exam. ASSESSMENT: ??BI-RADS: 1: Negative. Narrative 01/03/2024 11:21 AM CDT EXAM: ??BI BREAST DIAGNOSTIC RIGHT WITH TOMOSYNTHESIS INDICATION: ??Abnormal screening mammogram COMPARISON: ??Prior exam(s) were available and reviewed for comparison. DENSITY: ??b. There are scattered areas of fibroglandular density. FINDINGS: ??Previously seen possible grouped calcifications in the right breast are not seen on today's exam. No evidence of malignancy in the right breast. Procedure Note Mendez Fletcher M.D. - 01/03/2024 EXAM: BI BREAST DIAGNOSTIC RIGHT WITH TOMOSYNTHESIS INDICATION: Abnormal screening mammogram COMPARISON: Prior exam(s) were available and reviewed for comparison. DENSITY: b. There are scattered areas of fibroglandular density. FINDINGS: Previously seen possible grouped calcifications in the rightbreast are not seen on today's exam. No evidence of malignancy in theright breast. IMPRESSION: No mammographic findings of malignancy. RECOMMENDATION: Annual Screening Mammogram Findings discussed with the patient at the time of the exam. ASSESSMENT: BI-RADS: 1: Negative. Valerie Mendoza M.D. IMG BI PROCEDURES Final Result * Audiology evaluation (12/28/2023 12:00 AM CDT) 12/28/2023 us Valerie Mendoza M.D. AUDIOLOGY SERVICES ORDERABLES Fi nal Result Performing Organization Address City/[facility]/ZIP Co de Phone Number AUDIOLOGY AND AHD * Potassium (11/12/2020 1:17 PM CDT) Potassium, P 4.0 3.6 - 5.2 mmol/L 11/12/2020 2:03 PM CDT OWAT Blood (Blood, Venous) 11/12/2020 1:17 PM CDT 11/12/2020 1:18 PM CDT Alaina Cuevas APRN, C.N.P. LAB BLOOD ADD-ON Fi nal Result Performing Organization Address [facility] Co de Phone Number [facility] [address] [place] [address], [facility] in [place] [address] [place] [address] * S-TSH (Thyroid-Stimulating Hormone - Sensitive) (10/16/2020 9:58 AM CDT) TSH, Sensitive 0.4 0.3 - 4.2 mIU/L 10/16/2020 10:38 AM CDT OWAT Blood (Blood, Venous) 10/16/2020 9:58 AM CDT 10/16/2020 9:59 AM CDT Alaina Cuevas APRN, C.N.P. LAB BLOOD ADD-ON Fi nal Result Performing Organization Address [facility]/ZIP Co de Phone Number [facility] [address] [place] [address], [facility] in [place] [address] [place] [address] * (ABNORMAL) Basic Metabolic Panel (10/16/2020 9:58 [...] 10/16/2020 10:28 AM CDT OWAT eGFR-Black/Afri can Slovenian 73 >=60 mL/min/BSA 10/16/2020 10:28 AM CDT OWAT Comment: ----ADDITIONAL INFORMATION---- Estimated GFR calculated using the 2009 CKD_EPI creatinine equation. eGFR Non-Black/Afric an Slovenian 63 >=60 mL/min/BSA 10/16/2020 10:28 AM CDT OWAT Comment: ----ADDITIONAL INFORMATION---- Estimated GFR calculated using the 2009 CKD_EPI creatinine equation. Calcium, Total, P 10.0 8.6 - 10.0 mg/dL 10/16/2020 10:28 AM CDT OWAT Glucose, P 98 70 - 140 mg/dL 10/16/2020 10:28 AM CDT OWAT Blood (Blood, Venous) 10/16/2020 9:58 AM CDT 10/16/2020 9:59 AM CDT us Alaina Cuevas APRN, C.N.P. LAB BLOOD ADD-ON Fi nal Result [facility] [address] [place] [address], [place] OWAT [facility] in [place] [address] [place] [address] * (ABNORMAL) Lipid Panel (10/13/2019 10:52 AM CDT) Cholesterol, Total 161 mg/dL 2019 11:40 AM CDT OWAT Comment: ----REFERENCE VALUE---- Desirable: < 200 Borderline high: 200 - 239 High: > or = 240 Triglycerides 146 mg/dL 10/13/2019 11:40 AM CDT OWAT Comment: ----REFERENCE VALUE---- Normal: <150 Borderline high: 150-199 High: 200-499 Very high: > or =500 Cholesterol, HDL 45(L) >=50 mg/dL 10/13/19 20 11:40 AM CDT OWAT Calculated LDL 87 [...] CDT Alaina Cuevas APRN, C.N.P. LAB BLOOD ADD-ON Fi nal Result [facility] [address] [place] [address], [facility] OWAT [facility] in [place] [address] [place] [address] * HCV Ab w/Reflex to HCV PCR, S (medicare) (08/31/2016 10:11 AM CDT) HXHCV Ab [facility] Negative Negative POWERCHART Comment: Kgczgx-kd-jgpgac ratio is <1.00. Test Performed by: [facility] - [address] [address] Blood 08/31/2016 10:1 1 AM CDT Ran Siddiqui M.D. LAB MICROBIOLOGY - BLOOD OR DERABLES Final Result POWERCHART from Last 3 Months or Most Recently Relevant to Health Maintenance Insurance [employer] Care Teams Medicine Tech Relationship Specialty Start Date End Date Valerie Mendoza M.D. [address] [place] [phone] PCP - General 01/01/23
--- OUTSIDE RECORDS SUMMARY | 2024-03-27 09:20 | XMS_ITS | Encounter Summary ---
Author Organization [facility] Address [address] [place] [address] Care Team Providers Care Social Media Marketing Specialist Name Role Phone Valerie Mendoza M.D. Primary Care Provider [phone] Reason for Visit * Outpatient (Routine) - Authorized Specialty Diagnoses / Procedures Referred By Nathalie t Referred To Contact Audiology Diagnoses Loss Hearing Mixed Bilateral Gloria Vargas AUD, Au.D. [address] [place] [address] Phone: tel: fax: [facility] Region Referral ID Status Reason Start Date Expiration Date V isits Requested Visits Authorized [id number] Authorized 12/28/2023 06/28/2025 1 1 Encounter Details Date Type Department Care Team (Latest Contact Info) Description 01/17/2024 10:00 AM CDT Diagnostic Department of Otorhinolaryngology in [place], [place] [address] [place] [phone] Gloria Vargas AUD, Au.D. [address] [place] [phone] Loss Hearing Mixed Bilateral Social History Tobacco Use Types Packs/Day Years Used Date Smoking Tobacco: Former Cigarettes Q uit: 1978 Smokeless Tobacco: Never Alcohol Use Standard Drinks/Week Comments Yes 0 (1 standard drink = 0.6 oz pur e alcohol) occasional Social Connection and Isolation Panel [NHANES] A nswer Date Recorded Frequency of Communication w ith Friends and Family Twice a week 01/02/2019 Frequency of Social Gatherin gs with Friends and Family Once a week 01/02/2019 Attends [facility] Services 1 to 4 times per year [...] Answer Date Recorded PHQ-2 Score 0 10/23/2020 [facility] [place] of Occupat ional Health - Occupational Stress [...] PM CDT Legal Sex Female 4:21 AM BUTTONER Gender Identity Female 11/03/2017 1:17 PM CDT Sexual Orientation Not on file documented as of this encounter Consult Notes * Gloria Vargas, AUTUMN, Nicole - 01/17/2024 10:00 AM CDT SUBJECTIVE CHIEF COMPLAINT / REASON FOR VISIT Hearing Loss HISTORY OF PRESENT COMPLAINT Maine Martino was seen today for a hearing aid consultation. It was found during the previous audiologic evaluation that she has a moderately-severe to severe rising to moderate sloping to severe mixed loss on the right and severe rising to moderate sloping to severe mixed loss on the left. She is currently utilizing SYED signia devices with closed domes purchased from [employer]. ASSESSMENT/PLAN Hearing aid styles and levels of technology were discussed in great detail. Maine Martinowas interested in continuing with SYED style devices, looking at premium level technology, improvingaccess in background noise, avoiding custom molds if possible, rechargeable batteries and phone conn ectivity. Standard Tier Priecing was given to the patient. 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 Maine Martino has been charged the non-refundable consultation/device ordering fee. CARE PLAN Return for a hearing aid fitting appointment when the hearing aids have arrived at the clinic. documented in this encounter Plan of Treatment Upcoming Encounters Date Type Department Care Team (Late st Contact Info) Description 04/03/2024 10:30 AM BUTTONER Diagnostic Department of Otorhinolaryngology in [place], [place] [address] [place] [phone] Gloria Vargas AUD, Au.D. [address] [place] [phone] Scheduled Orders Name Type Priority Associated Diagnoses Orde r Schedule Hearing aid fitting Audiology Routine Loss Hearing Mixed Bilateral 1 Occurrences starting 01/17/2024 until 04/16/2024 Hearing aid check Audiology Routine Loss Hearing Mixed Bilateral 1 Occurrences starting 01/17/2024 until 04/17/2025 Hearing aid check Audiology Routine Loss Hearing Mixed Bilateral 1 Occurrences starting 01/17/2024 until 04/17/2025 documented as of this encounter Visit Diagnoses Diagnosis Loss Hearing Mixed Bilateral documented in this encounter Care Teams Social Media Marketing Specialist Relationship Specialty Start Date End Date Valerie Mendoza M.D. [address] [place] [phone] PCP - General 01/01/23 documented as of this encounter
--- OUTSIDE RECORDS SUMMARY | 2024-03-27 09:20 | XMS_ITS | Encounter Summary ---
Author Organization [facility] Address [address] [place] [address] Care Team Providers Care Welder Railcar Mechanic Name Role Phone Valerie Mendoza M.D. Primary Care Provider Encounter Details Date Type Department Care Team (Late st Contact Info) Description 02/08/2024 Orders Only [facility] Valerie Mendoza M.D. [address] [place] [address] Screening Examination Diabetes Mellitus; Monitoring For [...] and Family Once a week 01/02/2019 Attends [facility] 1 to 4 times per year [...] Answer Date Recorded PHQ-2 Score 0 10/23/2020 [facility] Occupat ional Health - Occupational [...] PM CDT Legal Sex Female 4:21 AM SEAM HAMMERER Gender Identity Female 11/03/2017 1:17 PM CDT Sexual Orientation Not on file documented as of this encounter Plan of Treatment Upcoming Encounters Date Type Department Care Team (Late st Contact Info) Description 04/03/2024 10:30 AM SEAM HAMMERER Diagnostic Department of Otorhinolaryngology in [place], [place] [address] [place] [address] Gloria Vargas, AUTUMN, Au.D. [address] [phone] Scheduled Orders Name Type Priority Associated Diagnoses Orde r Schedule Glucose, Fasting Lab Routine Screening Examination Diabetes Mellitus Expected: 02/22/2024, Expires: 08/06/2024 Basic Metabolic Panel Lab Routine Monitoring For Therapeutic Drug Therapy Expected: 02/22/2024, Expires: 08/06/2024 S-TSH (Thyroid-Stimulating Hormone - Sensitive) Lab Routine Hypothyroidism Expected: 02/22/2024, Expires: 08/06/2024 documented as of this encounter Visit Diagnoses Diagnosis Screening Examination Diabetes Mellitus Monitoring For Therapeutic Drug Therapy Hypothyroidism documented in this encounter Care Teams Welder Railcar Mechanic Relationship Specialty Start Date End Date Valerie Mendoza M.D. NPMegan: [phone] [address] [place] [phone] PCP - General 01/01/23 documented as of this encounter
--- OUTSIDE RECORDS SUMMARY | 2024-03-27 09:20 | XMS_ITS | Clinical Summary ---
Author Organization [facility] Address [address] [place] [address] Care Team Providers Care Pourer Crane Ladle Name Role Phone Valerie Mendoza M.D. Primary Care Provider [phone] Source Comments Patient records contain information from all sites at [facility]. For routine questions regarding patient records, call [phone] during business hours, M-F 8:00 AM - 5:00 PM Central Time. Record requests for emergency care only can be directed to [phone] at any time.[facility] Allergies Active Allergy Reactions Criticality Noted Date [...] BMI 40-44 posted on 04/21 at 13:44 SPOUT LINER. Reflux Esophageal 07/03/2009 Loss Hearing Bilateral 07/03/2009 Rhinitis Allergic 07/03/2009 Hypertension Essential Primary 06/21/2007 Hypothyroidism Acquired Overview (08/30/2017): Secondary to Graves treatment Resolved Problems Problem Noted Date Diagnosed Date Resolved Date Dislocation Shoulder Closed Subsequent Right 5 10/11/2018 Hyperglycemia 10/05/2013 10/11/2018 Bleeding Perimenopausal 01/06/201208/2018 Microhematuria 01/29/2009 10/11/2018 Encounters Date Type Department Care Team Description 03/14/2024 10:30 AM SPOUT LINER Diagnostic Department of Otorhinolaryngology in [address] [address] Gloria Vargas AUD, Au.D. Loss Hearing Mixed Bilateral 02/23/2024 11:00 AM CDT Diagnostic Department of Otorhinolaryngology in [address] [address] Gloria Vargas AUD, Au.D. Loss Hearing Mixed Bilateral 02/08/2024 Orders Only [facility] Valerie Rinaldi M.D. Screening Examination Diabetes Mellitus; Monitoring For Therapeutic Drug Therapy; Hypothyroidism 01/17/2024 10:00 AM CDT Diagnostic Department of Otorhinolaryngology in [address] [address] Gloria Vargas AUD, Au.D. Loss Hearing Mixed Bilateral 01/13/2024 Clinical Communication Department of Otorhinolaryngology in [address] [address] Gloria Vargas AUD, Au.D. 01/03/2024 10:34 AM CDT - 01/03/2024 11:59 PM CDT Hospital Encounter Department of Radiology in [address] [phone] Valerie Mendoza M.D. Abnormal Mammogram Microcalcification Discharge Disposition: Home or Self Care 12/28/2023 3:30 PM CDT Comprehensive Visit Department of Otorhinolaryngology in [address] [address] Ramya George P.A.-C. Loss Hearing Mixed Bilateral (Primary Dx); Dermatitis Ear 12/28/2023 11:00 AM CDT Diagnostic Department of Otorhinolaryngology in [address] [address] Gloria Vargas, Josi LEYVA. Loss Hearing Mixed Bilateral from Last 3 Months Immunizations Name Administration [...] and Family Once a week 01/02/2019 Attends Mos[employer] Services 1 to 4 times per year [...] Answer Date Recorded PHQ-2 Score 0 10/23/2020 [facility] of Occupat ional Health - [...] PM CDT Legal Sex Female 4:21 AM SPOUT LINER Gender Identity Female 11/03/2017 1:17 PM CDT Sexual Orientation Not on file Last Filed Vital Signs Vital Sign Reading Time Taken Comments Blood Pressure 130/65 10/23/2020 10:07 AM CDT Pulse 74 10/23/2020 10:07 AM CDT Temperature 36 ??C (96.8 ??F) 10/23/2020 10:07 AM CDT Respiratory Rate 16 01/03/2020 1:12 PM CDT Oxygen Saturation 95% 07/08/2019 9:39 AM SPOUT LINER Inhaled Oxygen Concentration - - Weight 102 kg (224 lb 13.9 oz) 10/23/2020 10:07 AM CDT Height 159.5 cm (5' 2.8) 10/23/2020 10:07 AM CD T Body Mass Index 40.09 10/23/2020 10:07 AM CDT Plan of Treatment Upcoming Encounters Date Type Department Care Team (Late st Contact Info) Description 04/03/2024 10:30 AM SPOUT LINER Diagnostic Department of Otorhinolaryngology in [place], [place] [address] [phone] Gloria Vargas, AUTUMN, Au.D. [address] [phone] Health Maintenance Due Date Last Done Comments [...] Additional history exists Potassium Level 11/12/2021 11/12/2020, 0601/2021, 10/13/2019, Additional history exists Depression Screening (Annual PHQ-2) 05/10/2023 Fasting Glucose for Diabetes Screening 10/17/2023 10/16/2020, 10/13/2019, 10/18/2018, Additional history exists COVID-19 Vaccine ( season) 2024 09/06/2020, 08/09/2020 Influenza Vaccine (#1) 2024 8, 03/27/2017, 03/09/2016, Additional history exists Lipid (Cholesterol) Screening 10/12/2024 10/13/2019, 08/13/2014, 08/07/2013 Cologuard 11/17/2024 11/17/2021 Colorectal Cancer Screening 11/17/2024 Mammogram 01/02/2025 01/03/2024, 09/2023, 12/07/2022, Additional history exists DTaP,Tdap,and Td Vaccines (3 - Td or Tdap) 10/23/2030 10/23/2020, 07/18/2010, 04/09/2005 Pneumococcal vaccine (0-64 years) Aged Out 08/13/2014 No longer eligible based on patient's age to complete this topic Hepatitis C Screening Completed 08/31/2016 Zoster Vaccines Completed 10/11/2018, 070 10/2017, 09/02/2017, Additional history exists IPV Vaccines Aged Out No longer eligi ble based on patient's age to complete this topic Procedures Procedure Name Priority Date/Time Associated Diagnosis [...] of the exam. ASSESSMENT: BI-RADS: 1: Negative. us Valerie Mendoza M.D. IMG BI PROCEDURES Final Result * Audiology evaluation (12/28/2023 12:00 AM CDT) 12/28/2023 Valerie Mendoza M.D. AUDIOLOGY SERVICES ORDERABLES Fi nal Result AUDIOLOGY AND AHD * Potassium (11/12/2020 1:17 PM CDT) Potassium, P 4.0 3.6 - 5.2 mmol/L 11/12/2020 2:03 PM CDT OWAT Blood (Blood, Venous) 11/12/2020 1:17 PM CDT 11/12/2020 1:18 PM CDT Alaina Cuevas APRN, C.N.P. LAB BLOOD ADD-ON Fi nal Result [facility] [address] [place] [address], [facility] [place] [facility] [address] [place] [id number] * S-TSH (Thyroid-Stimulating Hormone - Sensitive) (10/16/2020 9:58 AM CDT) TSH, Sensitive 0.4 0.3 - 4.2 mIU/L 10/16/2020 10:38 AM CDT OWAT Blood (Blood, Venous) 10/16/2020 9:58 AM CDT 10/16/2020 9:59 AM CDT Alaina Cuevas APRN, C.N.P. LAB BLOOD ADD-ON Fi nal Result [facility] [address] [place] [address], [place] [facility] [place] [facility] [address] [place] [address] * (ABNORMAL) Basic Metabolic Panel (10/16/2020 9:58 [...] 10/16/2020 10:28 AM CDT OWAT eGFR-Black/Afri can Faroese 73 >=60 mL/min/BSA 10/16/2020 10:28 AM CDT OWAT Comment: ----ADDITIONAL INFORMATION---- Estimated GFR calculated using the 2009 CKD_EPI creatinine equation. eGFR Non-Black/Afric an Faroese 63 >=60 mL/min/BSA 10/16/2020 10:28 AM CDT OWAT Comment: ----ADDITIONAL INFORMATION---- Estimated GFR calculated using the 2009 CKD_EPI creatinine equation. Calcium, Total, P 10.0 8.6 - 10.0 mg/dL 10/16/2020 10:28 AM CDT OWAT Glucose, P 98 70 - 140 mg/dL 10/16/2020 10:28 AM CDT OWAT Blood (Blood, Venous) 10/16/2020 9:58 AM CDT 10/16/2020 9:59 AM CDT Alaina Cuevas APRN C.N.P. LAB BLOOD ADD-ON Fi nal Result Performing Organization Address City[facility]/ZIP Co de Phone Number [facility] [address] [place] [address], [place] OW[place] [facility] [address] [place] [address] * (ABNORMAL) Lipid Panel (10/13/2019 10:52 AM CDT) [facility] Cholesterol, Total 161 mg/dL 2019 11:40 AM [...] CDT 10/13/2019 10:54 AM CDT Alaina Cuevas APRN C.N.P. LAB BLOOD ADD-ON Fi nal Result [facility] [address] [place] [address], [place] [facility] [address] [place] [address] * HCV Ab w/Reflex to HCV PCR, S (medicare) (08/31/2016 10:11 AM CDT) HXHCV Ab [facility] Negative Negative POWERCHART Comment: Uifmno-mh-zkfigb ratio is <1.00. Test Performed by: [address] [address] Blood 08/31/2016 10:1 1 AM CDT Ran Siddiqui M.D. LAB MICROBIOLOGY - BLOOD OR DERABLES Final Result POWERCHART from Last 3 Months or Most Recently Relevant to Health Maintenance Insurance MEDICA Care Teams Pourer Crane Ladle Relationship Specialty Start Date End Date Valerie Mendoza M.D. [address] [place] [address] PCP - General 01/01/23
--- OUTSIDE RECORDS SUMMARY | 2024-03-27 09:20 | XMS_ITS | Encounter Summary ---
Author Organization [facility] Address [address] [place] [address] Care Team Providers Care Resource Conservation Specialist Name Role Phone Valerie Mendoza M.D. Primary Care Provider [phone] Encounter Details Date Type Department Care Team (Latest Contact Info) Description 02/23/2024 11:00 AM CDT Diagnostic Department of Otorhinolaryngology in [place], [place] [address] [place] [address] Gloria Vargas, AUTUMN, Au.D. [address] [place] [address] Loss Hearing Mixed Bilateral Social [...] Answer Date Recorded PHQ-2 Score 0 10/23/2020 [facility] of Occupat ional Health - Occupational Stress [...] PM CDT Legal Sex Female 4:21 AM COMBINER Gender Identity Female 11/03/2017 1:17 PM CDT Sexual Orientation Not on file documented as of this encounter Consult Notes * Gloria Vargas AUD, Au.D. - 02/23/2024 11:00 AM CDT SUBJECTIVE CHIEF COMPLAINT / REASON FOR VISIT Hearing aid fitting HISTORY OF PRESENT ILLNESS Maine Martino is a 63 y.o. female who is seen today for a hearing aid fitting. Maine is a previous hearing aid user. OBJECTIVE Make and Model: Phonak Audeo Infinio 90 Sphere -R Hearing aid style: chrome polisher in the canal hearing aid(s) Serial Number Right: [id number] Serial Number Left: [id number] Vulcan Crewmember size and power: 1 length; power Custom mold: cshell with lock Battery Size: Rechargeable Repair Warranty Expiration Date: 03/03/2027 Loss and Damage Warranty Expiration Date: 03/03/2027 Service Warranty Expiration Date: 03/03/2027 Trial Period Date: 04/08/2024 ASSESSMENT / PLAN Otoscopy indicates clear canals and healthy tympanic membranes, bilaterally. Real-ear measurements obtained: On Ear Targets: NAL-2 RECD: Average. Feedback manager infusion run: Yes Volume Control: Yes Synced: Yes Program Button: No Paired to Smartphone: Yes Ethan demonstrated: Yes The following actions are completed: 1. Other fine tuning: increased to 104% global gain and then increased an additional 1 triple step per patient request. 2. Demonstrated hearing aid alerts/notifications including audible indicators for volume, programs,power on and low battery as appropriate. 3. Physically, devices are comfortable in the ear. Maine Martino practiced insertion and removal without difficulty. Cleaning and care expectations were reviewed and all questions answered. 4. Communication strategies and realistic expectations of amplification are discussed. Consistent use of amplification is encouraged. 5. Purchase agreement, trial, and warranty information are reviewed and signed. Patient is providedwith written instructions and/or link to online user guide and resources regarding hearing aid use and care, including troubleshooting. PLAN 1. Begin daily use of amplification. 2. Return for hearing aid check in 2-3 weeks. Should problems that permit the use of amplification arise, contact audiology before scheduled follow up. documented in this encounter Plan of Treatment Upcoming Encounters Date Type Department Care Team (Late st Contact Info) Description 04/03/2024 10:30 AM COMBINER Diagnostic Department of Otorhinolaryngology in [place], [place] [address] [place] [address] Gloria Vargas AUD, Au.D. [address] [place] [address] documented as of this encounter Visit Diagnoses Diagnosis Loss Hearing Mixed Bilateral documented in this encounter Care Teams Resource Conservation Specialist Relationship Specialty Start Date End Date Valerie Mendoza M.D. [address], [place] [address] PCP - General 01/01/23 documented as of this encounter
--- OUTSIDE RECORDS SUMMARY | 2024-03-27 09:20 | XMS_ITS | Encounter Summary ---
Author Organization [facility] Address [address] [place] [address] Care Team Providers Care Black Jack Dealer Name Role Phone Valerie Mendoza M.D. Primary Care Provider [phone] Reason for Referral * Outpatient (Routine) - Closed Specialty Diagnoses / Procedures Referred By Nathalie tong Referred To Contact Otorhinolaryngology Diagnoses Loss Hearing Mixed Bilateral Gloria Vargas AUD, Au.D. [address] [place] [address] Phone: tel: fax: [facility] Region Referral ID Status Reason Start Date Expiration Date V isits Requested Visits Authorized [id number] Closed Specialty Services Required 12/28/2023 06/28/2025 1 1 * Outpatient (Routine) - Authorized Specialty Diagnoses / Procedures Referred By Contmartine t Referred To Contact Audiology Diagnoses Loss Hearing Mixed Bilateral Gloria Vargas AUD, Au.D. [address] [place] [address] Phone: tel: fax[facility] Region Referral ID Status Reason Start Date Expiration Date V isits Requested Visits Authorized [id number] Authorized 12/28/2023 06/28/2025 1 1 Scheduling Instructions Do not call patient; patient will call when ready to schedule. WHEN SCHEDULED PLEASE ALSO SCHEDULE HEARING AID FITTING ORDER Encounter Details Date Type Department Care Team (Latest Contact Info) Description 12/28/2023 11:00 AM CDT Diagnostic Department of Otorhinolaryngology in [place], [place] [address] [place] [address] Gloria Vargas AUD, Au.D. [address] [place] [address] Loss Hearing Mixed Bilateral Social [...] and Family Once a week 01/02/2019 Attends [employer] 1 to 4 times per year [...] Answer Date Recorded PHQ-2 Score 0 10/23/2020 [facility] [place] of Occupat ional Health - Occupational Stress [...] Date Recorded Dental: Regular Dentist Unknown 07/01/19 Education Answer Date Recorded What is the highest level of school you have completed or the highest degree you have received? 12th grade 01/02/2019 Comments No Sex and Gender Information Value Date Recorded Sex Assigned at Female 11/03/2017 1:17 PM CDT Legal Sex Female 4:21 AM BINGO CHECKER Gender Identity Female 11/03/2017 1:17 PM CDT Sexual Orientation Not on file documented as of this encounter Procedure Notes * Gloria Vargas AUD, Au.D. - 12/28/2023 11:02 AM CDT SUBJECTIVE CHIEF COMPLAINT / REASON FOR VISIT ?? hearing loss bilaterally HISTORY OF PRESENT COMPLAINT Mrs. Maine Martino is a 63 year old patient who presents for an audiological evaluation with concerns of decreased hearing secondary to increased difficulty with hearing and understanding. She does currently wear devices she purchased in 2016 from local quality control microbiologist Mitzy Estrella. She did have at least one repaired in October. She does have chronic itching on the left side secondary to somepossible exzema. We do have a copy of a hearing evaluation from 2011 which shows a low frequency hearing loss rising to mild sloping to severe mixed hearing loss. Past CT results due show evidence ofotosclerosis. Mrs. Martino's audiological history is unremarkable by report. She denies otalgia, otorrhea, loudness intolerance, aural pressure/fullness, dizziness/imbalance. OBJECTIVE See Audiological Evaluation Form. ASSESSMENT/PLAN Right: moderately-severe to severe rising to moderate sloping to severe mixed hearing loss. Word recognition is excellent. Tympanometry shows a type A/As tracing consistent with intact and slightly stiffened middle ear systems. Left: severe rsing to moderate sloping to severe mixed hearing loss. Word recognition is excellent.Tympanometry shows a type A/As tracing consistent with intact and slightly stiffened middle ear systems. Bone conduction scores were completed with incomplete masking due to the limits of the equipment based on the severity of the loss. The results were shared with Krista and her . Given how long it's been since her last ENT consult and the change/progression in hearing I would recommend a new ENT consult for surgical consideration before pursuing any changes to amplification. CARE PLAN ENT as scheduled Consideration for amplification changes to include possiblity of new devcies. documented in this encounter Plan of Treatment Upcoming Encounters Date Type Department Care Team (Late st Contact Info) Description 04/03/2024 10:30 AM BINGO CHECKER Diagnostic Department of Otorhinolaryngology in [place], [place] [address] [place] [address] Gloria Vargas AUD, Au.D. [address] [place] [phone] Scheduled Orders Name Type Priority Associated Diagnoses Orde r Schedule Hearing aid fitting Audiology Routine Loss Hearing Mixed Bilateral 1 Occurrences starting 12/28/2023 until 03/27/2024 Scheduled Referrals Name Type Priority Associated Diagnoses Order Schedule Otorhinolaryngology - Audiology - Hearing aid program consult (clinic) Outpatient Referral Routine Loss Hearing Mixed Bilateral Expected: 12/28/2023 (Approximate), Expires: 04/26/2024 [facility] Otorhinolaryngology - General consult (clinic) Outpatient Referral Routine Loss Hearing Mixed Bilateral Expected: 12/28/2023, Expires: 03/29/2025 documented as of this encounter Procedures Procedure Name Priority Date/Time Associated Diagnosis Comments AUDIOLOGY EVALUATION Routine 12/28/2023 12:00 AM CDT Loss Hearing Mixed Bilateral documented in this encounter Results * Audiology evaluation (12/28/2023 12:00 AM CDT) 12/28/2023 us Valerie Mendoza M.D. AUDIOLOGY SERVICES ORDERABLES Fi nal Result AUDIOLOGY AND D documented in this encounter Visit Diagnoses Diagnosis Loss Hearing Mixed Bilateral documented in this encounter Care Teams Black Jack Dealer Relationship Specialty Start Date End Date Valerie Mendoza M.D. [address] [place] [phone] PCP - General 01/01/23 documented as of this encounter
--- OUTSIDE RECORDS SUMMARY | 2024-03-27 09:20 | XMS_ITS | Clinical Summary ---
Author Organization [facility] Address [place], [place] [address] Care Team Providers Care Lunch Truck Driver Name Role Phone Ran Siddiqui MD Primary Care Provider [phone] Allergies Active Allergy Reactions Criticality Noted Date [...] booster 07/18/2020 07/18/2010, 04/09/2005 COVID-19 vaccine series (2023- season) 2024 Influenza for age 50-64 01/09/2024 02/05/20 11, [...] 7:05 AM 09/18/2011 8:35 PM Care Teams Lunch Truck Driver Relationship Specialty Start Date End Date Ran Siddiqui MD PCP - General Family Practice 09/11/11
--- OUTSIDE RECORDS SUMMARY | 2024-03-27 09:20 | XMS_ITS ---
Author Organization [facility] Address [address] [place] [address] Care Team Providers Care Ampoule Sealer Name Role Phone Unavailable Unavailable Unavailable Surgery Details Not on file Complications Check Surgery Details section. Procedure Estimated Blood Loss Check Surgery Details section. Procedure Findings Check Surgery Details section. Procedure Specimens Taken Check Surgery Details section.
--- OUTSIDE RECORDS SUMMARY | 2024-03-27 09:20 | XMS_ITS | Encounter Summary ---
Author Organization [facility] Address [address] [place] [address] Care Team Providers Care Dry Wall Sprayer Name Role Phone Valerie Mendoza M.D. Primary Care Provider Reason for Visit * Outpatient (Routine) - Closed Specialty Diagnoses / Procedures Referred By Nathalie t Referred To Contact Otorhinolaryngology Diagnoses Loss Hearing Mixed Bilateral Gloria Vargas AUD, Au.D. [address] [place] [address] Phone: tel: fax: [facility] Region Referral ID Status Reason Start Date Expiration Date V isits Requested Visits Authorized [id number] Closed Specialty Services Required 12/28/2023 06/28/2025 1 1 Encounter Details Date Type Department Care Team (Latest Contact Info) Description 12/28/2023 3:30 PM CDT Comprehensive Visit Department of Otorhinolaryngology in [place], [place] [address] [place] [address] Ramya George P.A.-C. [address], [place] [address] Loss Hearing Mixed Bilateral (Primary Dx); Dermatitis Ear Social History Tobacco Use Types Packs/Day Years [...] Answer Date Recorded PHQ-2 Score 0 10/23/2020 [facility] of Occupat ional Health - Occupational Stress [...] PM CDT Legal Sex Female 4:21 AM BEAR KEEPER Gender Identity Female 11/03/2017 1:17 PM CDT Sexual Orientation Not on file documented as of this encounter Progress Notes * Ramya George P.A.-C. - 12/28/2023 3:30 PM CDT SUBJECTIVE CHIEF COMPLAINT/REASON FOR VISIT Mixed hearing loss HISTORY OF PRESENT ILLNESS Maine Martino is a pleasant 63 y.o. female here with her . She has worked into my schedule today for evaluation of her mixed hearing loss. She has had documented bilateral mixed hearing loss for at least [address] did show evidence of otosclerosis. She did purchase hearing aids from Dr. Mitzy Estrella in 2016 and has not had her hearing tested since. She does not feel like thehearing aids work well enough. She still struggles with communication in his had gradual increased difficulty with hearing and understanding. She also has chronic left ear dermatitis and has been encouraged to try some mineral oil for this. Hydrocortisone cream has also been tried in the past. The following portions of the patient's history were reviewed: allergies, current medications, problem list, family history, medical history, social history and surgical history OBJECTIVE PHYSICAL EXAMINATION Right external ear normal. Right ear canal has significant obstructing cerumen removed with instrumentation under otomicroscopic exam. The tympanic membrane is intact, middle ears without fluid. Leftexternal ear does have mild erythema and dry skin with a fissure of the superior babrara bowl. The canal skin is normal. The tympanic membrane is intact and thickened and I can not visualize middle ear . Neck is without adenopathy. Audiology evaluation today did show progression of her bilateral mixed loss. She has right moderately severe to severe rising to moderate sloping to severe mixed hearing loss with excellent word recognition and a type A/As tympanogram. On the left she had severe rising to moderate sloping to severemixed loss with excellent word recognition and a type A/As tympanogram. ASSESSMENT / PLAN 1. Bilateral mixed hearing loss 2. Otosclerosis, bilateral 3. Ear dermatitis, left For the dermatitis she can try Diprolene lotion twice daily for up to 2 weeks at a time as discussed. I would not like her to use this more than every 2-4 months. We discussed risks versus benefits of proceeding with surgical intervention for her otosclerosis. She is not overly thrilled with the idea of surgery and feels if she is going to potentially continue to need hearing aids thereafter she would not be interested in surgical intervention at this time. She has excellent word recognition and I think updated hearing aids will work well. The truck mechanic definitely feels she could benefit from either new hearing aids or new molds and stronger hearing aids and she is going to proceed in that manner. Would recommend following her hearing loss every year or 2 and she is aware that surgical consultation with otology in [place] would always be an option in the future, if she is interested. Ramya George P.A.-C. documented in this encounter Plan of Treatment Upcoming Encounters Date Type Department Care Team (Late st Contact Info) Description 04/03/2024 10:30 AM BEAR KEEPER Diagnostic Department of Otorhinolaryngology in [place], [place] [address] [address] Gloria Vargas AUD, Au.D. [address] [phone] documented as of this encounter Visit Diagnoses Diagnosis Loss Hearing Mixed Bilateral- Primary Dermatitis Ear documented in this encounter Care Teams Dry Wall Sprayer Relationship Specialty Start Date End Date Valerie Mendoza M.D. [address] [address] PCP - General 01/01/23 documented as of this encounter
--- OUTSIDE RECORDS SUMMARY | 2024-03-27 09:20 | XMS_ITS | Encounter Summary ---
Author Organization [facility] Address [address] [place] [address] Care Team Providers Care Rayon Winder Name Role Phone Valerie Mendoza M.D. Primary Care Provider [phone] Reason for Referral * Outpatient (Routine) - Closed Specialty Diagnoses / Procedures Referred By Nathalie tong Referred To Contact Diagnoses Abnormal Mammogram Microcalcification Procedures BI Breast Diagnostic Right with Tomosynthesis Valerie Mendoza M.D. [address] [place] [address] Phone: tel: [facility] Region Referral ID Status Reason Start Date Expiration Date Visits Re quested Visits Authorized [id number] Closed 12/13/2023 12/12/2024 1 1 Reason for Visit * Outpatient (Routine) - Closed Specialty Diagnoses / Procedures Referred By Nathalie tong Referred To Contact Diagnoses Abnormal Mammogram Microcalcification Procedures BI Breast Diagnostic Right with Tomosynthesis Valerie Mendoza M.D. [address] [place] [address] Phone: tel: fax: [facility] Region Referral ID Status Reason Start Date Expiration Date Visits Re quested Visits Authorized [id number] Closed 12/13/2023 12/12/2024 1 1 Encounter Details Date Type Department Care Team (Latest Contact Info) Description 01/03/2024 10:34 AM CDT - 01/03/2024 11:59 PM CDT Hospital Encounter Department of Radiology in [place], [place] [address] [place] [address] Valerie Mendoza M.D. 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 08/11/2022 ascorbic acid, vitamin C, (for_VITAMIN C) 500 mg tablet Take 500 mg by mouth daily. betamethasone dipropionate 0.05 % lotion 3 drops to left ear twice daily for 2 weeks. May repeat every 2-4 months if necessary for ear dermatitis. 60 mL 12/28/2023 cetirizine (ZyrTEC) 10 mg tablet Take 10 mg by mouth daily. For 90 days. 12/29/2022 cholecalciferol, vitamin D3, 400 unit capsule Take 1 capsule by mouth daily. CINNAMON BARK (CINNAMON ORAL) Take 1,000 mg by mouth daily with breakfast. 07/28/2011 Comp-Air Nebulizer Compressor device See Admin Instructions. 12/29/2022 cranberry 400 mg capsule Take 400 mg by mouth daily. 12/14/2012 diclofenac sodium (VOLTAREN) 1 % gel Apply 4 g topically 2 (two) times a day as needed (knee pain). 100 g 3 10/16/2019 docosahexanoic acid/epa (FISH OIL ORAL) Take 1,000 mg by mouth. fexofenadine (for_ALLEGRA) 180 mg tablet Take 1 tablet by mouth daily. 08/07/2013 levothyroxine (SYNTHROID, LEVOTHROID) 137 mcg tablet Take 1 tablet (137 mcg total) by mouth every morning before breakfast. 90 tablet 3 10/23/2020 lisinopriL (PRINIVIL,ZESTRIL) 10 mg tablet Take 1 tablet (10 mg total) by mouth daily. 90 tablet 4 10/23/2020 magnesium 250 mg tablet Take 250 mg by mouth. metoprolol succinate (TOPROL-XL) 100 mg 24 hr tablet Take 1 tablet (100 mg total) by mouth daily. 90 tablet 4 10/23/2020 multivitamin capsule Take by mouth daily. 01/22/2010 omeprazole (PriLOSEC) [address] capsule TAKE ONE CAPSULE BY MOUTH ONCE DAILY 90 capsule 3 10/30/2022 potassium chloride (KLOR-CON M/KDUR) 20 mEq ER tablet Take 3 tablets (60 mEq total) by mouth daily. 270 tablet 3 10/23/2020 Qvar RediHaler 40 mcg/actuation inhaler 1 puff 2 (two) times a day. 01/08/2023 traZODone (DESYREL) 50 mg tablet Take 50 mg by mouth at bedtime. 10/30/2021 triamterene-hydroC HLOROthiazide (MAXZIDE) 75-50 mg per tablet Take 1 tablet by mouth daily. 90 tablet 3 10/23/2020 documented as of this encounter Plan of Treatment Upcoming Encounters Date Type Department Care Team (Late st Contact Info) Description 04/03/2024 10:30 AM MANAGER SPECIALTY Diagnostic Department of Otorhinolaryngology in [place], [place] [address] [address] Gloria Vargas, AUTUMN, Au.DFernando [address] [place] [address] documented as of this encounter Procedures Procedure Name Priority Date/Time Associated Diagnosis Comments BI BREAST DIAGNOSTIC RIGHT WITH TOMOSYNTHESIS RAD - Routine (most inpatients and all outpatients) 01/03/2024 10:54 AM CDT Abnormal Mammogram Microcalcification documented in this encounter Results * BI Breast Diagnostic Right with [...] ASSESSMENT: BI-RADS: 1: Negative. Valerie Mendoza M.D. IM BI PROCEDURES Final Result documented in this encounter Visit Diagnoses Diagnosis Abnormal Mammogram Microcalcification documented in this encounter Care Teams Rayon Winder Relationship Specialty Start Date End Date Valerie Mendoza M.D. [address] [place] [address] PCP - General 01/01/23 documented as of this encounter
--- OUTSIDE RECORDS SUMMARY | 2024-03-27 09:20 | XMS_ITS | Encounter Summary ---
Author Organization [facility] Address [address] [place] [address] Care Team Providers Care Senior Chemist Name Role Phone Valerie Mendoza M.D. 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 Per our billing department query you are eligible for one pair of hearing aids every 3 years, covered at 95% once deductible has been met. No prior Authorization is required. Regarding deductible we have recommended that Krista contact her insurance company to determine if herdeductible has yet been fully met. Krista states that she does not want to have ITE or ITC style hearing aids because she had trouble with them in the past causing ear infections. She wanted Dr. Vargas to know. 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 [address] [address] documented as of this encounter Visit Diagnoses Not on filedocumented in this encounter Care Teams Senior Chemist Relationship Specialty Start Date End Date Valerie Mendoza M.D. [address] [address] PCP - General 01/01/23 documented as of this encounter
[2024-03-27 13:51] LABS: Strep A DNA Probe* NOT DETECTED (Not Detectd)
== END 2024-03-27 09:19 | disposition home or self-care (01) ==
LOC: KYNREF 09:18
PROVIDERS: PCP Nurse Practitioner Family; Visit Provider Nurse Practitioner Family
DX: J45.909 Unspecified asthma, uncomplicated (principal)
CPT/HCPCS: 87651

== ENCOUNTER 2024-06-30 13:20 | Outpatient (CLI) | payer OTHER, SELFPAY ==
[2024-06-30 16:28] LABS: Strep A DNA Probe* NOT DETECTED (Not Detectd)
[2024-06-30 16:39] LABS: PCR FLU A Negative PCR FLU A (Negative); PCR FLU B Negative PCR FLU B (Negative); PCR RSV Negative PCR RSV (Negative); SARS PCR* Negative SARS-CoV-2 (Negative)
== END 2024-06-30 13:21 | disposition home or self-care (01) ==
PROVIDERS: PCP Nurse Practitioner Family; Visit Provider Nurse Practitioner Family
DX: J02.9 Acute pharyngitis, unspecified (principal); J11.1 Influenza due to unidentified influenza virus with other respiratory manifestations
CPT/HCPCS: 87631; 87651

== ENCOUNTER 2024-07-28 13:11 | Outpatient (CLI) | payer OTHER, SELFPAY | END 2024-07-28 13:12 | disposition home or self-care (01) | PROVIDERS: PCP Nurse Practitioner Family; Visit Provider Nurse Practitioner Family | DX: M10.9 Gout, unspecified (principal); I10 Essential (primary) hypertension | CPT/HCPCS: 80048; 84550 ==

== ENCOUNTER 2024-09-01 13:01 | Outpatient (CLI) | payer OTHER, SELFPAY | END 2024-09-01 13:02 | disposition home or self-care (01) | LOC: KYNREF 13:03 | PROVIDERS: PCP Nurse Practitioner Family; Visit Provider Nurse Practitioner Family | DX: I10 Essential (primary) hypertension (principal); Z51.81 Encounter for therapeutic drug level monitoring | CPT/HCPCS: 80048 ==

== ENCOUNTER 2024-09-08 09:02 | Outpatient (CLI) | payer OTHER, SELFPAY | END 2024-09-08 09:03 | disposition home or self-care (01) | LOC: KYNREF 10:48 | PROVIDERS: PCP Nurse Practitioner Family; Visit Provider Nurse Practitioner Family | DX: I10 Essential (primary) hypertension (principal) | CPT/HCPCS: 80048 ==

== ENCOUNTER 2024-09-28 13:27 | Outpatient (CLI) | payer OTHER, SELFPAY | END 2024-09-28 13:28 | disposition home or self-care (01) | PROVIDERS: PCP Nurse Practitioner Family; Visit Provider Nurse Practitioner Family | DX: E87.6 Hypokalemia (principal); M10.9 Gout, unspecified | CPT/HCPCS: 84132; 84550 ==

== ENCOUNTER 2024-11-09 10:51 | Outpatient (CLI) | payer OTHER, SELFPAY | END 2024-11-09 10:52 | disposition home or self-care (01) | PROVIDERS: PCP Nurse Practitioner Family; Visit Provider Nurse Practitioner Family | DX: E03.9 Hypothyroidism, unspecified (principal); I10 Essential (primary) hypertension; E87.6 Hypokalemia; Z13.6 Encounter for screening for cardiovascular disorders; Z13.0 Encounter for screening for diseases of the blood and blood-forming organs and certain disorders involving the immune mechanism; Z13.21 Encounter for screening for nutritional disorder | CPT/HCPCS: 80053; 80061; 82306; 82607; 84207; 84443; 85025 ==

== ENCOUNTER 2025-01-15 10:30 | Outpatient (CLI) | payer OTHER, SELFPAY | END 2025-01-15 10:31 | disposition home or self-care (01) | PROVIDERS: PCP Nurse Practitioner Family; Visit Provider Nurse Practitioner Family | DX: R53.83 Other fatigue (principal) | CPT/HCPCS: 84443; 85025 ==

== ENCOUNTER 2025-04-04 07:47 | Outpatient (CLI) | payer OTHER, SELFPAY ==
--- NOTE | 2025-04-04 08:15 | CRLHL7_ITS ---
For Patients: As a result of the Century Cures Act, medical imaging exams and procedure reports are released immediately into your electronic medical record. You may view this report before your referring provider. If you have questions, please contact your health care provider. INDICATION: Neck pain, left arm pain. TECHNIQUE: Cervical spine MRI was performed without the administration of intravenous contrast. COMPARISON: : Cervical spine radiographs 03/08/2025. FINDINGS: The craniocervical junction and visualized intracranial structures are within normal limits. Straightening of the cervical lordosis. No STIR hyperintensity to suggest acute fracture or ligamentous injury. No suspicious marrow replacement. The vertebral body heights are maintained. Multilevel degenerative changes including disc space height loss, endplate, and bone marrow changes. The cervical spinal cord is within normal limits. Significant findings by level: C2-C3: No significant spinal canal or neural foraminal narrowing. C3-C4: No significant spinal canal or neural foraminal narrowing. C4-C5: Mild disc/osteophyte complex without significant spinal canal or neural foraminal narrowing. C5-C6: Mild spinal canal stenosis and mild neural foraminal stenosis bilaterally due to disc/osteophyte complex, ligamentum flavum thickening, uncovertebral, and facet joint hypertrophy. C6-C7: No significant spinal canal or neural foraminal narrowing. C7-T1: No significant spinal canal or neural foraminal narrowing. The visualized soft tissues are within normal limits. IMPRESSION: 1. No evidence of acute fracture. 2. Straightening of the cervical lordosis. 3. Multilevel degenerative disc change most pronounced at C5-C6. 4. At C5-C6, mild spinal canal stenosis and mild neural foraminal stenosis bilaterally. 5. No significant spinal canal or neural foraminal narrowing at the remaining levels. Dictated by Prosper Rose MD @ 04/06/2025 6:49:12 AM (Electronically Signed)
== END 2025-04-04 07:48 | disposition home or self-care (01) ==
LOC: MRI 07:48
PROVIDERS: PCP Nurse Practitioner Family; Visit Provider Nurse Practitioner Family
DX: M50.122 Cervical disc disorder at C5-C6 level with radiculopathy (principal); M79.602 Pain in left arm; M50.322 Other cervical disc degeneration at C5-C6 level; M48.02 Spinal stenosis, cervical region; M40.292 Other kyphosis, cervical region
CPT/HCPCS: 72141